=== PATIENT | male | born 1945 | race Caucasian/White ===

== ENCOUNTER → 2016-09-13 | Outpatient (CLI) | payer MEDICARE ==
[~2016-09-13] MED LIST: ALFU10TA6 PO; AMIO400T5 PO; ASCO-262 PO; ASPI-84 PO; ASPI325T32 PO; CA C1TAB79 PO; CHOL100011 PO; DOXA2TAB2 PO; ENXP80I.8 SQ; FINA5TAB PO; FOLI-88 PO; GABA-488 PO; HYDR-1231 PO; HYDR-3730 PO; LORA0.5T PO; LORA1TAB PO; METO-272 PO; OXYC-12 PO; PANT40TA3 PO; PNT40TEC PO; SIMV40TA4 PO; TRAM50TA2 PO; WRF5T PO; ZOLP10TA5 PO
--- OUTSIDE RECORDS SUMMARY | 2016-09-13 12:38 | XMS REPORT | Continuity of Care Document ---
Author Author [facility] Organization [facility] Address Unknown Phone Unavailable Care Team Providers Care Tax Commissioner Name Role Phone Self, Referral PCP Unavailable Source Comments Some departments are not documenting in the electronic medical record. If you do not see the information that you expected, contact Release of Information in the Health Information Management department at [phone] for further assistance in locating additional records.[facility] Active Allergies and Adverse Reactions No [...] veins. Successful cavotricuspid isthmus ablation. 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 Followed by Dr. Martinez Paroxysmal atrial flutter (HCC) 06/04/2012 Overview: 05/16/2012 - ANTONIO: No clot or thrombus were seen within the LA or MANA. Normal LV size and function. Mild mitral regurgitation. ([facility]ia [facility]) 05/16/2012 - DCCV: Successful atrial lead cardioversion in atrial flutter cardioversion and maintaining SR post cardioversion. ([facility]ia [facility]) HTN (hypertension) 06/04/2012 HLD (hyperlipidemia) 06/04/2012 Subdural hematoma (HCC) 06/04/2012 Overview: 1982 secondary to head trauma. Syncope 06/04/2012 Overview: 03/26/2008 - Tilt Table Test: Negative Tilt table for syncope. The patient had two episode of sudden drop in HR to the mid 20's and 30's upon performing Valsalva maneuver. ([facility]ia [facility]). 06/02/2012 - Stress Test: Excellent exercise tolerance a total of 10 minutes 15 seconds on standard Eduardo protocol, achieving 90% of maximum expected heart rate. No ischemia or infarction on SPECT images. Normal LV size with good contractility. EF ~ 62%. ([facility]). Chest pain 06/04/2012 Overview: 03/24/2008 - ECHO: [...] very dizzy in the supine position. ([facility]). 03/25/2008 - Stress Test: Excellent exercise tolerance [...] with good contractility. EF ~ 62%. ([facility]). Resolved Problems Problem Noted Date Resolved Date A-fib ([facility]) 12/19/2012 01/16/2013 Social History Tobacco [...]
--- NOTE | 2016-09-14 12:58 | ECHOCARDIOGRAPHY REPORT ---
PROCEDURE PHYSICIAN: KASH KEYES DATE OF PROCEDURE: 09/13/2016 TWO DIMENSIONAL ECHOCARDIOGRAM REPORT PRIMARY PHYSICIAN: OTHER PHYSICIAN: REFERRING PHYSICIAN: Dr. Alfredo ORDERING PHYSICIAN: INDICATION FOR THE PROCEDURE: Chest pain, atrial fibrillation MEASUREMENTS DERIVED VALUES LV DIAMETER (LAX) NORMALS NORMALS Diastolic 4.6 (3.6-5.2) Eject. Fract. 60% (60%+/-6%) Systolic (2.3-3.9) Diastolic Vol. % Shortening (0.22-0.42) Systolic Vol. Aortic Root IVS THICKNESS Diastolic 1.3 (0.6-1.1) LVPW THICKNESS Diastolic 1.3 (0.6-1.1) LA DIAMETER Systolic 4.1 (2.1-3.7) FINDINGS: 1. Technical quality is good. 2. The left ventricle is normal in size with moderate left ventricular hypertrophy noted diffusely. Systolic function appeared to be normal. Estimated ejection fraction 60%. Diastolic dysfunction is suggested by Doppler. 3. The left atrium is normal in size. No clot or thrombus were seen within the left atrium. 4. The right atrium and right ventricle are normal in size. No clot or thrombus were seen within the right side. 5. Mitral valve is normal in morphology with mild mitral regurgitation noted by color Doppler flow. No mitral valve prolapse. No mitral valve stenosis. 6. Aortic valve is trileaflet with normal opening and closing pattern. No significant aortic stenosis or regurgitation was seen. 7. Tricuspid valve is normal in morphology with mild tricuspid regurgitation noted by color Doppler flow. Doppler across tricuspid valve estimated pulmonary artery pressure of 31+ right atrial pressure. 8. Pulmonic valve is functioning normally. 9. No pericardial effusion. CONCLUSION: 1. Mild to moderate left ventricular hypertrophy noted diffusely. Systolic function is normal. Estimated ejection fraction 60%. Diastolic dysfunction is suggested by Doppler. 2. Mild mitral regurgitation. Mild tricuspid regurgitation. 3. Estimated pulmonary artery pressure of 40 mmHg. Job ID: [id number] Dictated Date: 09/14/2016 08:27:46 Dishwashing Machine Repairer Date: 09/14/2016 12:54:03 / rohith
== END ==
LOC: CARD 12:35
PROVIDERS: ATTEND Internal Medicine Cardiovascular Disease
DX: I48.91 Unspecified atrial fibrillation (principal); I10 Essential (primary) hypertension; E78.5 Hyperlipidemia, unspecified; E78.2 Mixed hyperlipidemia; R07.9 Chest pain, unspecified
CPT/HCPCS: 93306

== ENCOUNTER → 2016-10-11 | Outpatient (RCR) | payer MEDICARE ==
--- OUTSIDE RECORDS SUMMARY | 2016-07-13 14:26 | XMS REPORT | Continuity of Care Document ---
Author Author [facility] Organization [facility] Address Unknown Phone Unavailable Care Team Providers Care Regional Forester Name Role Phone Self, Referral PCP Unavailable Source Comments Some departments are not documenting in the electronic medical record. If you do not see the information that you expected, contact Release of Information in the Health Information Management department at [phone] for further assistance in locating additional records.[facility] Active Allergies and Adverse Reactions No Known Allergies Current Medications Prescription Sig. Disp. Refills Start End Date Status Date simvastatin (ZOCOR) 40 mg Take 40 mg by mouth at Active tablet bedtime daily. finasteride (PROSCAR) 5 Take 5 mg by mouth daily. Active mg tablet alfuzosin(+) (UROXATRAL) Take 10 mg by mouth daily Active 10 mg tablet after breakfast. zolpidem (AMBIEN) 10 mg Take 10 mg by mouth at Active tablet bedtime daily. cholecalciferol (Vitamin Take 1,000 Units by mouth Active D3) (VITAMIN D-3) 1,000 daily. units tablet ASCORBATE CALCIUM Take 500 mg by mouth Active (VITAMIN C PO) daily. pantoprazole DR Take 40 mg by mouth as Active (PROTONIX) 40 mg tablet Needed. LORazepam (ATIVAN) 1 mg Take 1 mg by mouth as Active tablet Needed. aspirin EC 325 mg tablet Take 325 mg by mouth Active daily. Active Problems Problem Noted Date AF (atrial fibrillation) (HCC) 12/02/2012 Overview: 12/19/2012 - LAAA / AFL RFA with Dr. Savage: Atrial fibrillation status post pulmonary vein antral isolation. Successful ablation of LA to isolate pulmonary veins. Successful cavotricuspid isthmus ablation. 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 Followed by Dr. Martinez Paroxysmal atrial flutter (HCC) 06/04/2012 Overview: 05/16/2012 - ANTONIO: No clot or thrombus were seen within the LA or MANA. Normal LV size and function. Mild mitral regurgitation. ([facility]ia [facility]) 05/16/2012 - DCCV: Successful atrial lead cardioversion in atrial flutter cardioversion and maintaining SR post cardioversion. ([facility]ia [facility]) HTN (hypertension) 06/04/2012 HLD (hyperlipidemia) 06/04/2012 Subdural hematoma (HCC) 06/04/2012 Overview: 1982 secondary to head trauma. Syncope 06/04/2012 Overview: 03/26/2008 - Tilt Table Test: Negative Tilt table for syncope. The patient had two episode of sudden drop in HR to the mid 20's and 30's upon performing Valsalva maneuver. (Via [facility]). 06/02/2012 - Stress Test: Excellent exercise tolerance a total of 10 minutes 15 seconds on standard Eduardo protocol, achieving 90% of maximum expected heart rate. No ischemia or infarction on SPECT images. Normal LV size with good contractility. EF ~ 62%. ([facility]ia [facility]). Chest pain 06/04/2012 Overview: 03/24/2008 - ECHO: Biventricular systolic function is normal with an EF ~ 60%. Doppler interrogation of LV inflow suggests underlying mild diastolic dysfunction with an E:A ration of 1.1. Cardiac chamber dimensions are at the upper limits of normal in size and symmetrical. No significant valvular abnormalities are noted. Trace mitral, tricuspid and pulmonic insufficiency are noted. Peak PA pressure is WNL estimated at 25mmHg. *When pt took a deep breath in for subcostal viewing his HR dropped from the 80's to the 30's with the pt feeling very dizzy in the supine position. ([facility]ia [facility]). 03/25/2008 - Stress Test: Excellent exercise tolerance for a total of 10 minutes achieving 99% of maximum expected heart rate. Baseline mild SB with appropriate HR response to exercise. Nondiagnostic EKG changes with exercise, returned to baseline during recovery. No ischemia or infarction on SPECT images. Normal LV size with good systolic function. No segmental wall motion abnormality. EF ~ 52%. 06/02/2012 - Stress Test: Excellent exercise tolerance, a total of 10 minutes 15 seconds on standard Eduardo protocol. Negative exercise stress test by EKG criteria. No ischemia or infarction on SPECT images. Normal LV size with good contractility. EF ~ 62%. ([facility]). Resolved Problems Problem Noted Date Resolved Date A-fib ([facility]) 12/19/2012 01/16/2013 Social History Tobacco Use Types Packs/Day Years Used Date Former Smoker Smokeless Tobacco: Current User Alcohol Use Drinks/Week oz/Week Comments No Last Filed Vital Signs Vital Sign Reading Time Taken Blood Pressure 110/76 05/29/2013 1:26 PM CDT Pulse 64 05/29/2013 1:24 PM CDT Temperature 36.7 C (98.1 F) 12/20/2012 3:00 AM CDT Respiratory Rate - - Height 1.88 m (6' 2") 05/29/2013 1:24 PM CDT Weight 93.033 kg (205 lb 1.6 oz) 05/29/2013 1:24 PM CDT Body Mass Index 26.32 05/29/2013 1:24 PM CDT Oxygen Saturation 99% 12/20/2012 3:00 AM CDT Plan of Care Health Maintenance Due Date Last Done Comments Physical (Comprehensive) 1952 Exam Pertussis Vaccine 1958 Tetanus Vaccine 1964 Colorectal Cancer 1997 Screening Shingles Vaccine 2007 Prevnar/Pneumovax (#1) 2012 Influenza Vaccine 04/12/2016 Results from Last 3 Months Not on file
== END | disposition home or self-care (01) ==
PROVIDERS: ATTEND Nurse Practitioner Family
DX: Z47.1 Aftercare following joint replacement surgery (principal); Z96.641 Presence of right artificial hip joint

== ENCOUNTER 2016-10-18 11:16 | Outpatient (RCR) | payer MEDICARE ==
[~2016-10-18 11:16] MED LIST changes: -HYDR-3730 PO; -PANT40TA3 PO
--- OUTSIDE RECORDS SUMMARY | 2016-10-18 11:25 | XMS REPORT | Continuity of Care Document ---
Author Author [facility] Organization [facility] Address Unknown Phone Unavailable Care Team Providers Care Manager Inventory Control Name Role Phone Self, Referral PCP Unavailable Source Comments Some departments are not documenting in the electronic medical record. If you do not see the information that you expected, contact Release of Information in the Health Information Management department at [phone] for further assistance in locating additional records.[facility] Active Allergies and Adverse Reactions No Known [...] veins. Successful cavotricuspid isthmus ablation. 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 Followed by Dr. Martinez Paroxysmal atrial flutter (HCC) 06/04/2012 Overview: 05/16/2012 - ANTNOIO: No clot or thrombus were seen within [...] and 30's upon performing Valsalva maneuver. (Via [facility]). 06/02/2012 - Stress Test: Excellent exercise tolerance a total of 10 minutes 15 seconds on standard Eduardo protocol, achieving 90% of maximum expected heart rate. No ischemia or infarction on SPECT images. Normal LV size with good contractility. EF ~ 62%. ([facility]). Chest pain 06/04/2012 Overview: 03/24/2008 - [...] very dizzy in the supine position. ([facility]). 03/25/2008 - Stress Test: Excellent exercise [...] with good contractility. EF ~ 62%. ([facility]ia [facility]). Resolved Problems Problem Noted Date Resolved Date A-fib ([facility]) 12/19/2012 01/16/2013 Social History Tobacco Use Types [...]
== END 2016-10-18 13:42 | disposition home or self-care (01) ==
PROVIDERS: ATTEND Nurse Practitioner Family
DX: Z47.1 Aftercare following joint replacement surgery (principal); Z96.641 Presence of right artificial hip joint

== ENCOUNTER 2016-11-28 09:50 | Outpatient (CLI) | payer MEDICARE ==
[~2016-11-28] VITALS: Ht 188 cm; Wt 91.6 kg
[2016-11-28 10:01] VITALS: BP 117/71
[2016-11-28] MEDS ORDERED: PANT40TA3 PO (10:11)
[2016-11-28 10:37] LABS: BASOPHILS % (AUTO) 1 % (0-10); EOSINOPHILS # (AUTO) 0.2 10^3/uL (0.0-0.3); EOSINOPHILS % (AUTO) 5 % (0-10); LYMPHOCYTES # (AUTO) 1.2 X 10^3 (1.0-4.0); LYMPHOCYTES % (AUTO) 26 % (12-44); MEAN CORPUSCULAR HEMOGLOBIN 28 PG (25-34); MEAN CORPUSCULAR HGB CONC 33 G/DL (32-36); MEAN CORPUSCULAR VOLUME 87 FL (80-99); MEAN PLATELET VOLUME 10.6 FL (7.4-10.4); MONOCYTES # (AUTO) 0.3 X 10^3 (0.0-1.0); MONOCYTES % (AUTO) 7 % (0-12); NEUTROPHILS % (AUTO) 62 % (42-75); PLATELET COUNT 193 10^3/uL (130-400); WHITE BLOOD COUNT 4.8 10^3/uL (4.3-11.0)
[2016-11-28 10:55] LABS: ANION GAP 9 MMOL/L (5-14); BLOOD UREA NITROGEN 11 MG/DL (7-18); BUN/CREATININE RATIO 11; CALCIUM 9.2 MG/DL (8.5-10.1); CARBON DIOXIDE 23 MMOL/L (21-32); CHLORIDE 108 MMOL/L (98-107); CREATININE SERUM 1.02 MG/DL (0.60-1.30); GFR ESTIMATED > 60; GLUCOSE 95 MG/DL (70-105); POTASSIUM 4.2 MMOL/L (3.6-5.0); SODIUM 140 MMOL/L (135-145)
[2016-11-29] MEDS ORDERED: HYDR-3730 PO (12:15)
== END 2016-11-28 10:25 | disposition home or self-care (01) ==
LOC: PREOP 09:50
PROVIDERS: ATTEND Surgery Pediatric Surgery
DX: Z01.812 Encounter for preprocedural laboratory examination (principal); Z11.2 Encounter for screening for other bacterial diseases; K40.90 Unilateral inguinal hernia, without obstruction or gangrene, not specified as recurrent; L98.9 Disorder of the skin and subcutaneous tissue, unspecified; R10.13 Epigastric pain
CPT/HCPCS: 36415; 80048; 85025; 87081

== ENCOUNTER 2016-11-29 09:01 | Day surgery (SDC) | payer MEDICARE ==
[~2016-11-29] VITALS: Ht 188 cm; Wt 91.6 kg
[~2016-11-29 09:01] MED LIST changes: +PANT40TA3 PO
[2016-11-29 09:30] VITALS: BP 121/78
[2016-11-29] MEDS: LACTATED RINGERS 1,000 ML IV PRN ×3 (09:30→12:28)
[2016-11-29] MEDS ORDERED: NS (IVPB) 50 ML ONE (09:35)
[2016-11-29] MEDS ORDERED: ceFAZolin 1,000 MG (ANCEF) VIAL ONE (09:35)
[2016-11-29] MEDS ORDERED: BUP/EPI 0.25% 1:200,000 (MARCAINE) 30 ML VIAL ONE (09:38)
[2016-11-29] MEDS ORDERED: BUP/EPI 0.5% 1:200,000 (SENSORCAINE) 30 ML VIAL ONE (09:39)
[2016-11-29] MEDS ORDERED: fentaNYL INJECTION 100 MCG/2 ML AMP ONE ×2 (09:45→12:22)
[2016-11-29] MEDS ORDERED: ROCURONIUM 50 MG/5 ML (ZEMURON) VIAL IV ONE (09:45)
[2016-11-29] MEDS ORDERED: MIDAZOLAM 2 MG/2 ML (VERSED) VIAL ONE (09:45)
[2016-11-29] MEDS ORDERED: proPOfol 200 MG/20 ML (DIPRIVAN) VIAL IV ONE (09:45)
[2016-11-29] MEDS ORDERED: LACTATED RINGERS 1,000 ML IV ONE ×3 (09:45→11:49)
[2016-11-29] MEDS ORDERED: SEVOFLURANE (ULTANE) 15 ML INHAL SOLN ONE ×3 (09:45→11:54)
[2016-11-29] MEDS ORDERED: ONDANSETRON 4 MG/2 ML (SDV) Z0FRAN ONE ×2 (09:45→11:55)
[2016-11-29] MEDS ORDERED: LIDOCAINE PF 2% 10 ML (XYLOCAINE) AMP ONE (09:45)
--- NOTE | 2016-11-29 09:48 | Progress Note-Pre Operative ---
Pre-Operative Progress Note H&P Reviewed The H&P was reviewed, patient examined and no changes noted. Date H&P Reviewed: Nov 29, 2016 Time H&P Reviewed: 09:40 Pre-Operative Diagnosis: bilateral symptomatic reducible inguinal hernias, GERD , nose lesion TAMIKO LOZOYA MD Nov 29, 2016 9:48 am
[2016-11-29] MEDS ORDERED: FAMOTIDINE 20MG/2ML IV (PEPCID) ONE (09:57)
[2016-11-29] MEDS ORDERED: morphine INJ 10 MG/ML 1ML (SYR OR VIAL) IVP PRN (10:00)
[2016-11-29] MEDS ORDERED: ceFAZolin 1 GM/NS 50 ML IVPB IV ONE ×2 (10:00)
[2016-11-29] MEDS ORDERED: ACETAMINOPHEN 325 MG TABLET/CAPLET (TYLENOL) PO PRN (10:00)
[2016-11-29] MEDS ORDERED: HYDROcodone/APAP 5 MG/325 MG (LORTAB) TAB PO ONE (10:00)
[2016-11-29] MEDS ORDERED: ONDANSETRON 4 MG/2 ML (SDV) Z0FRAN IVP PRN ×2 (10:00→12:15)
[2016-11-29] MEDS ORDERED: NEOSTIGMINE (BLOXIVERZ ) 1 MG/1ML 10 ML VIAL ONE (11:49)
[2016-11-29] MEDS ORDERED: GLYCOPYRROLATE 0.2 MG/ML (ROBINUL) 2 ML VIAL ONE (11:49)
[2016-11-29] MEDS ORDERED: KETOROLAC 30 MG/ML VIAL ONE (11:51)
[2016-11-29] MEDS ORDERED: DEXAMETHASONE PF 10 MG/ML (DECADRON) VIAL ONE (11:54)
[2016-11-29] MEDS ORDERED: BUP/EPI 0.5% 1:200,000 (SENSORCAINE) 30 ML VIAL INJ ONE (12:00)
[2016-11-29] MEDS ORDERED: morphine INJ 10 MG/ML 1ML (SYR OR VIAL) ONE (12:08)
--- NOTE | 2016-11-29 12:12 | Progress Note-Post Operative ---
Post-Operative Progess Note Surgeon (s)/Gut Puller (s) Surgeon TAMIKO LOZOYA MD Gut Puller: aileen perez FARMER [employer]OPS Pre-Operative Diagnosis bilateral symptomatic reducible inguinal hernias, GERD, nose lesion Post-Operative Diagnosis bilateral symptomatic direct ing hernia, 1cm recurrent lesion superior bridge of nose, reflux eshophagitis(class B), small HH(1.5cm), moderate gastritis. Post-Op Procedure Note Date of Procedure: Nov 29, 2016 Name of Procedure Performed: laparoscopic bilateral inguinal hernia repair with mesh. EGD with bx. Excision recurrent skin lesion nose(1cm). Description of the Procedure: laparoscopic bilateral inguinal hernia repair with mesh. EGD with bx. Excision recurrent skin lesion nose(1cm). Findings of the Procedure . Anesthesia Type GET Estimated blood loss (mL): minimal Specimen(s) collected/removed nose lesion, GE jxn, antrum TAMIKO LOZOYA MD Nov 29, 2016 12:12 pm
[2016-11-29] MEDS ORDERED: HYDR-3730 PO (12:15)
--- NOTE | 2016-11-29 12:16 | Discharge Inst-Surgical ---
D/C Lap Instructions-DEVORA New, Converted, or Re-Newed RX: RX on Chart Follow Up Appt in 2 weeks Activity as tolerated No driving for 24 hours No driving while on pain medications Incentive Spirometry use every 2 hours while awake Regular Diet Symptoms to Report: Fever over 101 degree F, Nausea/Vomiting Infection Signs and Symptoms to report: Increased redness, Foul odor of wound, Increased drainage Bathing instructions: May shower Operative Area Clean/Dry; Keep incision clean/dry If any problems/questions: Contact your physician or go to Emergency Room TAMIKO LOZOYA MD Nov 29, 2016 12:16 pm
[2016-11-29] MEDS: morphine INJ 10 MG/ML 1ML (SYR OR VIAL) IVP PRN ×3 (12:19→12:27)
[2016-11-29] MEDS: fentaNYL INJECTION 100 MCG/2 ML AMP IVP PRN ×3 (12:28→12:38)
[2016-11-29 13:05] VITALS: BP 109/72
[2016-11-29 13:35] VITALS: BP 106/69
[2016-11-29 14:05] VITALS: BP 107/67
--- NOTE | 2016-11-29 15:20 | OPERATIVE REPORT ---
DATE OF SERVICE: 11/29/2016 ATTENDING PRIMARY CARE PHYSICIAN: Dr. Beto Alfredo. PREOPERATIVE DIAGNOSES: 1. Bilateral symptomatic inguinal hernias. 2. Recurrent symptomatic skin lesion of the superior bridge of nose. 3. Recurrent gastroesophageal reflux disease. POSTOPERATIVE DIAGNOSES: 1. Bilateral direct inguinal hernias. 2. Skin lesion of the bridge of the nose, approximately 1 cm in size. 3. Reflux esophagitis Class B. 4. Small hiatal hernia, approximately 1.5 cm in size. 5. Moderate severity gastritis. PROCEDURE: 1. Laparoscopic bilateral inguinal hernia repair with mesh. 2. Excision recurrent skin lesion of the nose, 1 cm in size. 3. Esophagogastroduodenoscopy with biopsy. SURGEON: TAMIKO LOZOYA MD TOOTH CUTTER PINION: ROSSANA HALEY APRN ANESTHESIA: General endotracheal. ESTIMATED BLOOD LOSS: Minimal. FINDINGS: 1. Bilateral direct inguinal hernias with nothing within the hernia sacs. 2. 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 3. Reflux esophagitis, Class B. 4. Small hiatal hernia, approximately 1.5 cm in size. 5. No ulcers, pus or any neoplasms. DISPOSITION: The patient tolerated the procedure well. The patient is a 71-year-old male who we have seen before in the past. We had initially seen him in 2009 for a symptomatic umbilical hernia which was repaired. We had seen him a year later for bilateral inguinal swelling. At the time, he was found to have bilateral inguinal hernias which were small and not symptomatic at the time. Over time, he reports the size of the lesions have grown larger in size and become symptomatic. Upon recent examination, he was found to have bilateral inguinal hernias which were reducible, however, tender to palpation. 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 The reoccurrence is approximately 1 cm in size. He also reports that he has had epigastric discomfort for the past several years which has worsened over time. He states that he was started on Protonix, however, has had some slight worsening of symptoms over time as well. The patient was brought to the operating room and laid supine on the table. After adequate IV pain and sedating medications and general endotracheal intubation, the abdomen was prepped and draped in standard surgical fashion. A 0.5% Marcaine with epinephrine was used to anesthetize the overlying skin in the infraumbilical rim and transverse skin incision made using a 15 blade. The abdominal wall was retracted anteriorly with a sharp towel clamp and a Veress needle inserted with a low pressure of 0 mmHg and the abdomen was insufflated with 15 mmHg pressure. The Veress needle was removed and a 10 mm trocar was placed followed by a 10 mm x 45 degree angle laparoscope visualizing the peritoneal cavity. A four quadrant abdominal x-ray was performed. Bilateral direct inguinal hernias were identified. There was nothing within the hernia sac. There were no abnormalities of the colon, small bowel or omentum. Under direct visualization, we then proceeded to place bilateral 5 mm ports under direct visualization after the skin and peritoneum were anesthetized using 0.5% Marcaine and a transverse skin incision made using a 15 blade. We first proceeded with repair of the left inguinal hernia. The peritoneal lining was opened using Sonicision. We first directed laterally toward the conjoint tendon and inguinal ligament. We the proceeded medially toward Piter's ligament. We then proceeded with inferior dissection encompassing the entire hernia sac. The cord and its contents identified and spared throughout the process. Good hemostasis was observed. A Bard 3D Max polypropylene mesh was placed through the 10 mm port and tacked to Piter's ligament medially and inguinal ligament and conjoint tendon laterally. The peritoneal lining was then placed over the entire mesh and a few tacks placed to hold it into place. We then directed our surgery to repair of the right inguinal hernia. In a similar manner, the peritoneal lining was opened using Sonicision. We first proceeded with lateral dissection to the conjoint tendon and inguinal ligament. We then proceeded medially toward Piter's ligament. We then proceeded with inferior dissection until the entire hernia sac was dissected out. The same type of mesh was placed and tacked to Pitre's ligament medially and inguinal ligament and conjoint tendon laterally. The omentum was then placed over the mesh and a few tacks placed to hold them in place with visualization of good hemostasis. The 10 mm port site fascia and peritoneum were then closed under direct visualization using Marquez-Sulma device and 0 Vicryl suture. The abdomen was desufflated and the remaining ports were removed. The skin incisions were closed using 4-0 Monocryl running subcuticular sutures. The wounds were then cleaned and covered with Dermabond. The patient tolerated this portion of the procedure well. We will instruct him to do no heavy lifting or exertion for the next 2 weeks and then increase activity as tolerated and to wear scrotal support at all times. Under the same general endotracheal anesthesia, we then proceeded with the excision of the nose lesion. The face was prepped and draped in standard surgical fashion. The lesion was approximately 1 cm in size, raised and hyperkeratotic. This was anesthetized using 0.5% Marcaine with epinephrine. The lesion was then fully excised in an elliptical shape transversely using a 15 blade. Good hemostasis was observed and skin edges were approximated using interrupted 4-0 Nylon sutures. The wound was then cleaned and left open to air. Under the same anesthesia, we then proceeded with the EGD portion of the procedure. The endoscope was placed in the mouth visualizing the pharynx and hypopharyngeal region. The endotracheal tube was visualized going through the vocal cords. The endoscope was then intubated into the esophageal opening an esophagus insufflated. Endoscope was then advanced to the first, second and third portions of the esophagus at the level of the GE junction and reflux esophagitis, Class B identified. There were no ulcers or strictures identified in this region. A biopsy was performed with forceps with the aid of visualization with good hemostasis. Then, the scope was then easily advanced to the stomach and retroflexed. There was a small hiatal hernia approximately 1.5 cm in size. There was a modest degree of gastritis. There were no formal ulcers or polyps or anything further identified. A biopsy was taken of the stomach antrum with the forceps under visualization with good hemostasis. The endoscope was then advanced through the first and second portions of the duodenum. These segments were normal with no ulcers or distal obstruction identified. The endoscope was then slowly withdrawn while taking a second look and suctioning or residual air with no additional findings. The patient tolerated the procedure well. For his reflux esophagitis, gastritis and hiatal hernia, we will recommend continued medical management with the necessary lifestyle and diet accommodation including small and more frequent meals, avoidance of eating at night, as well as head elevation while laying supine. He also needs to avoid caffeinated beverages, spicy, greasy and acidic foods. We will also have him continue with Protonix for now; however, if his symptoms worsen, we will try different PPI, acid reducers, as well as a trial of Scottie. Job ID: [id number] DocumentID: [id number] Dictated Date: 11/29/2016 12:30:21 Tool Planer Set Up Operator Date: 11/29/2016 15:20:03 Dictated By: TAMIKO LOZOYA MD [facility]
[2016-11-29] MEDS ORDERED: HYDROcodone/APAP 5 MG/325 MG (LORTAB) TAB ONE (15:29)
== END 2016-11-29 16:10 | disposition home or self-care (01) ==
LOC: SDC 09:01
PROVIDERS: ATTEND Surgery Pediatric Surgery
DX: K40.20 Bilateral inguinal hernia, without obstruction or gangrene, not specified as recurrent (principal); K21.0 Gastro-esophageal reflux disease with esophagitis; K44.9 Diaphragmatic hernia without obstruction or gangrene; K29.70 Gastritis, unspecified, without bleeding; C44.321 Squamous cell carcinoma of skin of nose
CPT/HCPCS: 88305; 94640; 94664

== ENCOUNTER 2017-03-10 11:31 | Emergency (ER) | payer MEDICARE ==
[~2017-03-10] VITALS: Ht 188 cm; Wt 87.1 kg
[~2017-03-10 11:31] MED LIST changes: +HYDR-3730 PO
[2017-03-10] MEDS ORDERED: NS IV 1000 ML 1,000 ML IV ONE (12:04)
[2017-03-10] MEDS ORDERED: KETOROLAC 30 MG/ML VIAL IVP STA (12:04)
[2017-03-10] MEDS ORDERED: NS IV 500 ML 500 ML IV ONE (12:04)
--- NOTE | 2017-03-10 12:04 | ED GI ---
General Chief Complaint: -Male Stated Complaint: DIARRHEA/"VIRUS LIKE SYMPTOMS" Nursing Triage Note: PT AMBULATED TO ROOM. PT STATES HE HAS BEEN HAVING SEVERE DIARRHEA SINCE SATURDAY. NO URINARY ISSUES, BUT ALSO COMPLAINS OF ABD CRAMPING. Sepsis Screen: No Definite Risk Source of Information: Patient Exam Limitations: No Limitations History of Present Illness Time Seen By Provider: 11:57 Initial Comments Patient has ER by private conveyance with his with chief complaint that for 5 days now he has experienced copious loose watery diarrhea without any blood or tarry character 6. He has had some body aches for the past day or so and having a hard time keeping up with his fluid intake. Skin no fevers nausea or rash. He says they were out of [place]. To go camping but did not drink from any unsafe water sources or aware of. He has been on prednisone taper for the past 3 months to try and treat the pain from his right hip procedure that was done in May 2016. He says his primary care doctor did not think that it was caused by the prednisone. He says he had a colonoscopy over 10 years ago and was not told he had diverticula. He has not been on any antibiotics recently. He is having 8-10 watery diarrhea a day. He took 4 Imodium in the past 2 days. It would help for a little bit but he says he today the Imodium is not helping. Allergies and Home Medications Allergies Coded Allergies: ether (Verified Allergy, Unknown, 03/24/08) Home Medications Alfuzosin Hcl 10 Mg Tab.sr.24h, 10 MG PO HS, (Reported) Ascorbate Calcium 500 Mg Tablet, 500 MG PO HS, (Reported) Aspirin 325 Mg Tablet.dr, 325 MG PO DAILY, (Reported) Ca Carbonate/Vitamin D3/Vit K 1 Each Tab.chew, 1 EACH PO HS, (Reported) Cholecalciferol 1,000 Unit Capsule, 1,000 UNIT PO HS, (Reported) Finasteride 5 Mg Tablet, 5 MG PO HS, (Reported) Folic Acid/Multivit-Min/Lutein 1 Each Tab.chew, 1 EACH PO HS, (Reported) Hydrocodone/Acetaminophen 1 Each Tablet, 1-2 EACH PO Q4H, #35 Prescribed by: TAMIKO LOZOYA on 11/29/16 1215 Lorazepam 1 Mg Tablet, 1 MG PO HS PRN for SLEEP, (Reported) Pantoprazole Sodium 40 Mg Tablet.dr, 40 MG PO DAILY, (Reported) Simvastatin 40 Mg Tablet, 40 MG PO HS, (Reported) Zolpidem Tartrate 10 Mg Tablet, 10 MG PO HS PRN, (Reported) Review of Systems Constitutional: No chills, No diaphoresis, No dizziness, No fever, No malaise Respiratory: Denies Cough, Denies Shortness of Air Cardiovascular: Denies Chest Pain, Denies Irregular Heart Rate, Denies Lightheadedness Gastrointestinal: See HPI, Denies Abdominal Pain, Denies Constipated, Diarrhea , Denies Nausea, Poor Appetite Genitourinary: Denies Burning, Denies Discharge Skin: No pruritus, No rash Psychiatric/Neurological: Denies Headache, Denies Numbness Past Xrkrvcj-Rcxmqo-Wqfbau Hx Patient Social History Alcohol Use: Denies Use Recreational Drug Use: No Type Used: Smokeless Tobacco 2nd Hand Smoke Exposure: No Recent Foreign Travel: No Contact w/Someone Who Travel: No Recent Infectious Disease Expo: No Recent Hopitalizations: No Immunizations Up To Date Tetanus Booster (TDap): Unknown Date of Pneumonia Vaccine: May 12, 2012 Seasonal Allergies Seasonal Allergies: Yes (MILD) Surgeries HX Surgeries: Yes (HEART ABLATION, SUBDURAL HEMATOMA, HERNIA, RIGHT HIP REPLACED) Surgeries: Appendectomy, Joint Replacement, Tonsillectomy Respiratory Hx Respiratory Disorders: Yes (PNEUMONIA 5 WEEKS AGO, STILL HAS PERSISTENT NON- PRODUCTIVE COUGH) Respiratory Disorders: Pneumonia, Sleep Apnea Cardiovascular Hx Cardiac Disorders: Yes (HX OF HEART ABLATION-2012) Neurological Hx Neurological Disorders: Yes (SUBDURAL HEMATOMA 1981) Reproductive System Hx Reproductive Disorders: No Sexually Transmitted Disease: No Genitourinary Hx Genitourinary Disorders: No Gastrointestinal Hx Gastrointestinal Disorders: Yes (EPIGASTRIC PAIN) Gastrointestinal Disorders: Gastroesophageal Reflux Musculoskeletal Hx Musculoskeletal Disorders: Yes (RIGHT HIP REPLACED-MAY 2016; RIGHT SHOULDER TORN ROTATOR CUFF) Endocrine Hx Endocrine Disorders: No HEENT HX ENT Disorders: Yes (CATARACT REMOVED) HEENT Disorders: Cataract Loss of Vision: Bilateral Hearing Impairment: Hard of Hearing, Bilateral Hearing Aide Cancer Hx Cancer: Yes Cancer: Skin Psychosocial Hx Psychiatric Problems: No Integumentary HX Skin/Integumentary Disorder: No Blood Transfusions Hx Blood Disorders: No Physical Exam Vital Signs VS - Last 72 Hours, by Label 03/10/17 11:38 Temp 99.3 Pulse 83 Resp 16 B/P (MAP) 142/84 Pulse Ox 93 O2 Delivery Room Air Capillary Refill : Less Than 3 Seconds General Appearance: WD/WN, no apparent distress HEENT: PERRL/EOMI, pharynx normal Neck: non-tender, full range of motion, normal inspection Respiratory: chest non-tender, lungs clear, normal breath sounds Cardiovascular: normal peripheral pulses, regular rate, rhythm, no edema Peripheral Pulses: 3+ Dorsalis Pedis (R), 3+ Left Dors-Pedis (L) Gastrointestinal: non tender, soft, abnormal bowel sounds (hyperactive) Extremities: non-tender, normal capillary refill Neurologic/Psychiatric: alert, oriented x 3 Skin: normal color, warm/dry Focused Exam Lactic Acid Level Laboratory Tests Test 03/10/17 12:30 Lactic Acid Level 1.45 MMOL/L (0.50-2.00) Progress/Results/Core Measures Results/Orders Lab Results Laboratory Tests Test 03/10/17 11:55 03/10/17 12:30 Range/Units White Blood Count 4.5 4.3-11.0 10^3/uL Red Blood Count 4.96 4.35-5.85 10^6/uL Hemoglobin 14.3 13.3-17.7 G/DL Hematocrit 43 40-54 % Mean Corpuscular Volume 87 80-99 FL Mean Corpuscular Hemoglobin 29 25-34 PG Mean Corpuscular Hemoglobin Concent 33 32-36 G/DL Red Cell Distribution Width 14.2 10.0-14.5 % Platelet Count 189 130-400 10^3/uL Mean Platelet Volume 10.1 7.4-10.4 FL Neutrophils (%) (Auto) 55 42-75 % Lymphocytes (%) (Auto) 24 12-44 % Monocytes (%) (Auto) 18 H 0-12 % Eosinophils (%) (Auto) 3 0-10 % Basophils (%) (Auto) 0 0-10 % Neutrophils # (Auto) 2.5 1.8-7.8 X 10^3 Lymphocytes # (Auto) 1.1 1.0-4.0 X 10^3 Monocytes # (Auto) 0.8 0.0-1.0 X 10^3 Eosinophils # (Auto) 0.1 0.0-0.3 10^3/uL Basophils # (Auto) 0.0 0.0-0.1 10^3/uL Sodium Level 136 135-145 MMOL/L Potassium Level 3.7 3.6-5.0 MMOL/L Chloride Level 105 98-107 MMOL/L Carbon Dioxide Level 21 21-32 MMOL/L Anion Gap 10 5-14 MMOL/L Blood Urea Nitrogen 13 7-18 MG/DL Creatinine 1.18 0.60-1.30 MG/DL Estimat Glomerular Filtration Rate > 60 BUN/Creatinine Ratio 11 Glucose Level 127 H 70-105 MG/DL Calcium Level 9.1 8.5-10.1 MG/DL Magnesium Level 1.8 1.8-2.4 MG/DL Total Bilirubin 0.8 0.1-1.0 MG/DL Aspartate Amino Transf (AST/SGOT) 11 5-34 U/L Alanine Aminotransferase (ALT/SGPT) 18 0-55 U/L Alkaline Phosphatase 59 40-136 U/L C-Reactive Protein High Sensitivity 3.73 H 0.00-0.50 MG/DL Total Protein 6.4 6.4-8.2 GM/DL Albumin 3.7 3.2-4.5 GM/DL Lactic Acid Level 1.45 0.50-2.00 MMOL/L Micro Results Microbiology 03/10/17 C. difficile GDH Antigen & Toxins - Final, Complete My Orders Orders - OSMAR LOAIZA Cbc With Automated Diff (03/10/17 12:04) Comprehensive Metabolic Panel (03/10/17 12:04) Hs C Reactive Protein (03/10/17 12:04) Lactic Acid Analyzer (03/10/17 12:04) Magnesium (03/10/17 12:04) Stool Culture (03/10/17 12:04) Fecal Wbc (03/10/17 12:04) Abdomen/Kub 1view (03/10/17 12:04) Ketorolac Injection (Toradol Injection) (03/10/17 12:04) Saline Lock/Iv-Start (03/10/17 12:04) Ns Iv 500 Ml (Sodium Chloride 0.9%) (03/10/17 12:04) Ns Iv 1000 Ml (Sodium Chloride 0.9%) (03/10/17 12:04) Loperamide Capsule (Imodium Capsule) (03/10/17 12:15) C Difficile Ag + Toxin A/B. (03/10/17 13:17) Parasite Scrn Stool Giard Cryp (03/10/17 12:11) Medications Given in ED Current Medications Medications Dose Ordered Sig/Jeannine Route Start Time Stop Time Status Last Admin Dose Admin Loperamide HCl 4 mg ONCE ONCE PO 03/10/17 12:15 03/10/17 12:16 DC 03/10/17 12:34 4 MG Sodium Chloride 500 ml @ 0 mls/hr Q0M ONCE IV 03/10/17 12:04 03/10/17 12:10 DC 03/10/17 12:32 500 MLS/HR Sodium Chloride 1,000 ml @ 0 mls/hr Q0M ONCE IV 03/10/17 12:04 03/10/17 12:10 DC 03/10/17 13:03 1,000 MLS/HR Vital Signs/I&O Vital Sign - Last 12Hours 03/10/17 11:38 Temp 99.3 Pulse 83 Resp 16 B/P (MAP) 142/84 Pulse Ox 93 O2 Delivery Room Air Blood Pressure Mean: 103 Progress Note : Time: 13:38 Progress Note Patient's lab is not that remarkable. We've given him some IV fluids and he is feeling better. We will teach him how to use loperamide and he has not had a bowel movement since getting loperamide here. We'll give him good return precautions and let him go home with the C. difficile tox is negative. Otherwise antibiotics are probably not indicated at this time as she is not septic nor does he require hospitalization for his inability to keep up with his fluids. Diagnostic Imaging Diagonstic Imaging: Xray Plain Films/CT/US/NM/MRI: abdomen (KUB) Comments NAME: REGINA PATEL [facility] REC#: [id number] PT STATUS: REG ER : 1945 PHYSICIAN: OSMAR LOAIZA MD ADMIT DATE: 03/10/17/ER Draft Date of Exam:03/10/17 ABDOMEN/KUB 1VIEW INDICATION: Diarrhea, abdominal pain COMPARISON: None. FINDINGS: 2 views of the abdomen demonstrate nondistended bowel gas pattern. There is no free air. No abnormal calcification. IMPRESSION: Negative KUB. Dictated on workstation # [id number] Dict: 03/10/17 1249 Trans: 03/10/17 1251 [facility] [id number] Interpreted by: ESTEBAN ZAIDI Electronically signed by: Reviewed: Reviewed by Me Departure Impression Impression: Primary Impression: Diarrhea in adult patient Disposition: 01 HOME, SELF-CARE Condition: Improved Departure-Patient Inst. Decision time for Depature: 13:39 Referrals: BAYLEE BRANTLEY MD (PCP/Family) Primary Care Physician Patient Instructions: Diarrhea and Traveler's Diarrhea, Adult (DC) Add. Discharge Instructions: The goal of diarrhea is to keep up with your fluids faster than you're losing them to your diarrhea. So you should drink copious amounts of fluids and eat a bland diet to include things like bananas, rice, applesauce and toast. If you' re having diarrhea for more than 48 hours and having a hard time keeping up with your fluid intake then you should take 2 tablets of loperamide by mouth. Every 4 hours if he had a loose stool take another tablet of loperamide until you're no longer having diarrhea. If your symptoms of diarrhea last for more than a couple days you should follow up with your primary care physician and have them follow-up on the stool cultures that were obtained today. Preliminary report should be available by tomorrow. If you're having new or worsening symptoms such as chest pain shortness of breath fevers he should return to the ER. All discharge instructions reviewed with patient and/or family. Voiced understanding. Copy Copies To 1: BAYLEE BRANTLEY MD, TITUS J Mar 10, 2017 12:04
[2017-03-10 12:15] LABS: BASOPHILS % (AUTO) 0 % (0-10); EOSINOPHILS # (AUTO) 0.1 10^3/uL (0.0-0.3); EOSINOPHILS % (AUTO) 3 % (0-10); LYMPHOCYTES # (AUTO) 1.1 X 10^3 (1.0-4.0); LYMPHOCYTES % (AUTO) 24 % (12-44); MEAN CORPUSCULAR HEMOGLOBIN 29 PG (25-34); MEAN CORPUSCULAR HGB CONC 33 G/DL (32-36); MEAN CORPUSCULAR VOLUME 87 FL (80-99); MEAN PLATELET VOLUME 10.1 FL (7.4-10.4); MONOCYTES # (AUTO) 0.8 X 10^3 (0.0-1.0); MONOCYTES % (AUTO) 18 % (0-12); NEUTROPHILS # (AUTO) 2.5 X 10^3 (1.8-7.8); NEUTROPHILS % (AUTO) 55 % (42-75); PLATELET COUNT 189 10^3/uL (130-400); RED BLOOD COUNT 4.96 10^6/uL (4.35-5.85); RED CELL DISTRIBUTION WIDTH 14.2 % (10.0-14.5); WHITE BLOOD COUNT 4.5 10^3/uL (4.3-11.0)
[2017-03-10] MEDS ORDERED: LOPERAMIDE 2 MG (IMODIUM) CAP PO ONE (12:15)
[2017-03-10 12:42] LABS: ALANINE AMINOTRANSFERASE 18 U/L (0-55); ALBUMIN 3.7 GM/DL (3.2-4.5); ANION GAP 10 MMOL/L (5-14); ASPARTATE AMINO TRANSFERASE 11 U/L (5-34); BILIRUBIN,TOTAL 0.8 MG/DL (0.1-1.0); BLOOD UREA NITROGEN 13 MG/DL (7-18); BUN/CREATININE RATIO 11; CALCIUM 9.1 MG/DL (8.5-10.1); CARBON DIOXIDE 21 MMOL/L (21-32); CHLORIDE 105 MMOL/L (98-107); CREATININE SERUM 1.18 MG/DL (0.60-1.30); GFR ESTIMATED > 60; GLUCOSE 127 MG/DL (70-105); MAGNESIUM 1.8 MG/DL (1.8-2.4); POTASSIUM 3.7 MMOL/L (3.6-5.0); SODIUM 136 MMOL/L (135-145); TOTAL PROTEIN 6.4 GM/DL (6.4-8.2); hs C REACTIVE PROTEIN 3.73 MG/DL (0.00-0.50)
--- NOTE | 2017-03-10 12:51 | Diagnostic Imaging Report ---
INDICATION: Diarrhea, abdominal pain COMPARISON: None. FINDINGS: 2 views of the abdomen demonstrate nondistended bowel gas pattern. There is no free air. No abnormal calcification. IMPRESSION: Negative KUB. Dictated by: Dictated on workstation # [id number]
[2017-03-10] MEDS ORDERED: ONDANSETRON 4 MG/2 ML (SDV) Z0FRAN IVP ONE (13:45)
[2017-03-10 14:18] VITALS: BP 116/79
== END 2017-03-10 14:18 | disposition home or self-care (01) ==
LOC: EDUNIT# 11:31 → ER 11:32
DX: R19.7 Diarrhea, unspecified (principal); K21.9 Gastro-esophageal reflux disease without esophagitis; F17.200 Nicotine dependence, unspecified, uncomplicated; Z96.642 Presence of left artificial hip joint; Z87.01 Personal history of pneumonia (recurrent); Z98.890 Other specified postprocedural states; Z90.89 Acquired absence of other organs; Z90.49 Acquired absence of other specified parts of digestive tract; Z79.82 Long term (current) use of aspirin
CPT/HCPCS: 36415; 74000; 80053; 83605; 83735; 85025; 86141; 87045; 87046; 87324; 87328; 87329; 87449; 89055; 96361; 96374

== ENCOUNTER 2018-03-16 09:03 | Emergency (ER) | payer MEDICARE, OTHER ==
[~2018-03-16] VITALS: Ht 188 cm; Wt 92.1 kg
[2018-03-16] MEDS ORDERED: KETOROLAC 30 MG/ML VIAL IVP ONE (09:15)
[2018-03-16] MEDS ORDERED: ONDANSETRON 4 MG/2 ML (SDV) Z0FRAN IVP ONE (09:15)
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
[2018-03-16] MEDS ORDERED: DOXY50CA2 (09:36)
[2018-03-16] MEDS ORDERED: NPD5OP (09:36)
--- NOTE | 2018-03-16 09:39 | Diagnostic Imaging Report ---
Indication: Right-sided periumbilical pain. Fever Supine views of the abdomen shows the bowel gas pattern to be within normal limits. No mass or calculus is seen. There is no bony abnormality. Impression: No acute abnormality is seen with no change from 03/10/2017. Dictated by: Dictated on workstation # [id number]
--- NOTE | 2018-03-16 09:45 | Diagnostic Imaging Report ---
PROCEDURE: CT urinary tract, rule out kidney stone. TECHNIQUE: Multiple contiguous axial images were obtained through the abdomen and pelvis without the use of intravenous contrast. INDICATION: Right-sided periumbilical pain. Fever. The liver, gallbladder and bile ducts are normal. The spleen, pancreas and adrenals are normal. There are several punctate nonobstructing stones in the left kidney. There is no hydronephrosis on the left. There is mild pelvic caliectasis present on the right. The right ureter is mildly dilated down into the mid pelvic level where there is a 3-4 mm calculus present. This is several centimeters proximal to the ureterovesical junction. The left ureter is normal. The bladder is normal. There is diverticulosis of the colon with no evidence of diverticulitis or other acute bowel abnormality. There is no free intraperitoneal air or fluid. There is no acute bony normality. IMPRESSION: There is a 3 x 4 mm calculus in the distal right ureter causing mild obstruction at this time. Dictated by: Dictated on workstation # [id number]
[2018-03-16] MEDS ORDERED: ONDA4TAB11 PO (10:23)
[2018-03-16] MEDS ORDERED: CEPH500T PO (10:23)
[2018-03-16] MEDS ORDERED: OXYC-471 PO (10:23)
[2018-03-16 10:45] LABS: BILIRUBIN,URINE NEGATIVE (NEGATIVE); CLARITY,URINE CLEAR; COLOR,URINE YELLOW; GLUCOSE, URINE (UA) NEGATIVE (NEGATIVE); KETONES,URINE 1+ (NEGATIVE); LEUKOCYTE ESTERASE ,URINE 1+ (NEGATIVE); NITRITE,URINE NEGATIVE (NEGATIVE); PH,URINE 5 (5-9); PROTEIN,URINE 1+ (NEGATIVE); UROBILINOGEN,URINE 1 MG/DL (NORMAL)
[2018-03-16 10:55] LABS: BACTERIA,URINE TRACE /HPF; GRANULAR CASTS,URINE 0-2 /LPF
[2018-03-16] MEDS ORDERED: OXYC-202 PO (11:02)
[2018-03-16 11:13] VITALS: BP 128/90
--- OUTSIDE RECORDS SUMMARY | 2018-03-17 09:13 | XMS REPORT | Clinical Summary ---
Author Author [facility] Organization [facility] Address Unknown Phone Unavailable Care Team Providers [employer] Parts Counter Sales Person Name Role Phone Self, Referral PCP Unavailable Source Comments Some departments are not documenting in the electronic medical record. If you do not see the information that you expected, contact Release of Information in the Health Information Management department at [phone] for further assistance in locating additional records.[facility] Allergies No Known Allergies Current Medications Prescription Sig. [...] veins. Successful cavotricuspid isthmus ablation. Hyperthyroidism 09/02/2012 senior care current use of anticoagulant 09/02/2012 Overview: Warfarin. Followed by Dr. Martinez Paroxysmal atrial flutter (HCC) 06/04/2012 Overview: 05/16/2012 - ANTONIO: No clot or thrombus were seen within the LA or MANA. Normal LV size and function. Mild mitral regurgitation. ([facility]) 05/16/2012 - DCCV: Successful atrial lead cardioversion in atrial flutter cardioversion and maintaining SR post cardioversion. 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 Syncope 06/04/2012 Overview: 03/26/2008 - Tilt Table Test: Negative Tilt table for syncope. The patient had two episode of sudden drop in HR to the mid 20's and 30's upon performing Valsalva maneuver. ([facility]). 06/02/2012 - Stress Test: Excellent exercise tolerance a total of 10 minutes 15 seconds on standard Eduardo protocol, achieving 90% of maximum expected heart rate. No ischemia or infarction on SPECT images. Normal LV size with good contractility. EF ~ 62%. ([facility]). Chest pain 06/04/2012 Overview: 03/24/2008 - ECHO: [...] very dizzy in the supine position. ([facility]). 03/25/2008 - Stress Test: Excellent exercise tolerance [...] size with good contractility. EF ~ 62%. ([facility]). Resolved Problems Problem Noted Date Resolved Date A-fib (HCC) 12/19/2012 01/16/2013 Social History Tobacco Use Types Packs/Day Years Used Date Former Smoker Smokeless Tobacco: Current User Alcohol Use Drinks/Week oz/Week Comments No Sex Assigned at Date Recorded Not on file Last Filed Vital Signs Vital Sign Reading Time Taken Blood Pressure 110/76 05/29/2013 1:26 PM CDT Pulse 64 05/29/2013 1:24 PM CDT Temperature 36.7 C (98.1 F) 12/20/2012 3:00 AM CDT Respiratory Rate - - Oxygen Saturation 99% 12/20/2012 3:00 AM CDT Inhaled Oxygen - - Concentration Weight 93 kg (205 lb 1.6 oz) 05/29/2013 1:24 PM CDT Height 188 cm (6' 2") 05/29/2013 1:24 PM CDT Body Mass Index 26.33 05/29/2013 1:24 PM CDT Plan of Treatment Health Maintenance Due Date Last Done Comments HEPATITIS C SCREENING 1947 PHYSICAL (COMPREHENSIVE) 1954 EXAM PERTUSSIS VACCINE 1958 TETANUS VACCINE 1964 COLORECTAL CANCER 1997 SCREENING SHINGLES RECOMBINANT 1997 VACCINE (1 of 2) ABDOMINAL AORTIC ANEURYSM 2012 SCREENING PNEUMONIA (PCV13/PPSV23) 2012 VACCINES (1 of 2 - PCV13) INFLUENZA VACCINE 05/12/2018 Results Not on filefrom Last 3 Months
--- OUTSIDE RECORDS SUMMARY | 2018-03-17 09:14 | XMS REPORT | Continuity of Care Document ---
Author Author [facility] Organization [facility] Address Unknown Phone Unavailable Allergies Active Description Code Type Severity Reaction Onset Reported/Identified Relationship to Patient Clinical Status Yes ether [id number] Drug Allergy Unknown N/A 03/24/2008 Medications There is no data. 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 12/19/2015 ANNE MARIE TORRES MD Ot D22.39 MELANOCYTIC NEVI OF OTHER PARTS OF FACE 12/19/2015 ANNE MARIE TORRES MD Ot E03.2 HYPOTHYROIDISM DUE TO MEDS AND OTH EXOGE 12/19/2015 ANNE MARIE TORRES MD Ot E78.5 HYPERLIPIDEMIA, UNSPECIFIED 12/19/2015 ANNE MARIE TORRES MD Ot G47.33 OBSTRUCTIVE SLEEP APNEA (ADULT) (PEDIATR 12/19/2015 ANNE MARIE TORRES MD Ot I48.91 UNSPECIFIED ATRIAL FIBRILLATION 12/19/2015 ANNE MARIE TORRES MD Ot L57.0 ACTINIC KERATOSIS 12/19/2015 ANNE MARIE TORRES MD Ot L82.1 OTHER SEBORRHEIC KERATOSIS 12/19/2015 ANNE MARIE TORRES MD Ot Z11.2 ENCOUNTER FOR SCREENING FOR OTHER BACTER 12/21/2015 ANNE MARIE TORRES MD Ot 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 12/21/2015 ANNE MARIE TORRES MD Ot D22.39 MELANOCYTIC NEVI OF OTHER PARTS OF FACE 12/21/2015 ANNE MARIE TORRES MD Ot E03.2 HYPOTHYROIDISM DUE TO MEDS AND OTH EXOGE 12/21/2015 ANNE MARIE TORRES MD Ot E78.5 HYPERLIPIDEMIA, UNSPECIFIED 12/21/2015 ANNE MARIE TORRES MD Ot G47.33 OBSTRUCTIVE SLEEP APNEA (ADULT) (PEDIATR 12/21/2015 ANNE MARIE TORRES MD Ot I48.91 UNSPECIFIED ATRIAL FIBRILLATION 12/21/2015 ANNE MARIE TORRES MD Ot L57.0 ACTINIC KERATOSIS 12/21/2015 ANNE MARIE TORRES MD Ot L82.1 OTHER SEBORRHEIC KERATOSIS 12/21/2015 ANNE MARIE TORRES MD Ot Z11.2 ENCOUNTER FOR SCREENING FOR OTHER BACTER 05/21/2016 ANNE MARIE TORRES MD Ot 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 05/21/2016 ANNE MARIE TORRES MD Ot D22.39 MELANOCYTIC NEVI OF OTHER PARTS OF FACE 05/21/2016 ANNE MARIE TORRES MD Ot E03.2 HYPOTHYROIDISM DUE TO MEDS AND OTH EXOGE 05/21/2016 ANNE MARIE TORRES MD Ot E78.5 HYPERLIPIDEMIA, UNSPECIFIED 05/21/2016 ANNE MARIE TORRES MD Ot G47.33 OBSTRUCTIVE SLEEP APNEA (ADULT) (PEDIATR 05/21/2016 ANNE MARIE TORRES MD Ot I48.91 UNSPECIFIED ATRIAL FIBRILLATION 05/21/2016 ANNE MARIE TORRES MD Ot L57.0 ACTINIC KERATOSIS 05/21/2016 ANNE MARIE TORRES MD Ot L82.1 OTHER SEBORRHEIC KERATOSIS 05/21/2016 ANNE MARIE TORRES MD Ot Z11.2 ENCOUNTER FOR SCREENING FOR OTHER BACTER 09/14/2016 KASH KEYES MD Ot E78.2 MIXED HYPERLIPIDEMIA 09/14/2016 KASH KEYES MD Ot E78.5 HYPERLIPIDEMIA, UNSPECIFIED 09/14/2016 KASH KEYES MD Ot I10 ESSENTIAL (PRIMARY) HYPERTENSION 09/14/2016 KASH KEYES MD Ot I48.91 UNSPECIFIED ATRIAL FIBRILLATION 09/14/2016 KASH KEYES MD Ot R07.9 CHEST PAIN, UNSPECIFIED 09/19/2016 KASH KEYES MD Ot E78.2 MIXED HYPERLIPIDEMIA 09/19/2016 KASH KEYES MD Ot E78.5 HYPERLIPIDEMIA, UNSPECIFIED 09/19/2016 KASH KEYES MD Ot I10 ESSENTIAL (PRIMARY) HYPERTENSION 09/19/2016 KASH KEYES MD Ot I48.91 UNSPECIFIED ATRIAL FIBRILLATION 09/19/2016 KASH KEYES MD Ot R07.9 CHEST PAIN, UNSPECIFIED 09/27/2016 BENJIE, EDGAR E MARINE OIL TERMINAL SUPERINTENDENT Ot Z47.1 AFTERCARE FOLLOWING JOINT REPLACEMENT BOYD 09/27/2016 BENJIE, EDGAR E MARINE OIL TERMINAL SUPERINTENDENT Ot Z96.641 PRESENCE OF RIGHT ARTIFICIAL HIP JOINT 10/04/2016 BENJIE, EDGAR E MARINE OIL TERMINAL SUPERINTENDENT Ot Z47.1 AFTERCARE FOLLOWING JOINT REPLACEMENT BOYD 10/04/2016 BENJIE, EDGAR E MARINE OIL TERMINAL SUPERINTENDENT Ot Z96.641 PRESENCE OF RIGHT ARTIFICIAL HIP JOINT 10/04/2016 BENJIE, EDGAR E MARINE OIL TERMINAL SUPERINTENDENT Ot Z47.1 AFTERCARE FOLLOWING JOINT REPLACEMENT BOYD 10/04/2016 BENJIE, EDGAR E MARINE OIL TERMINAL SUPERINTENDENT Ot Z96.641 PRESENCE OF RIGHT ARTIFICIAL HIP JOINT 10/08/2016 KASH KEYES MD Ot E78.2 MIXED HYPERLIPIDEMIA 10/08/2016 KASH KEYES MD Ot E78.5 HYPERLIPIDEMIA, UNSPECIFIED 10/08/2016 KASH KEYES MD Ot I10 ESSENTIAL (PRIMARY) HYPERTENSION 10/08/2016 KASH KEYES MD Ot I48.91 UNSPECIFIED ATRIAL FIBRILLATION 10/08/2016 KASH KEYES MD Ot R07.9 CHEST PAIN, UNSPECIFIED 10/11/2016 BENJIE, EDGAR E MARINE OIL TERMINAL SUPERINTENDENT Ot Z47.1 AFTERCARE FOLLOWING JOINT REPLACEMENT BOYD 10/11/2016 BENJIE, EDGAR E MARINE OIL TERMINAL SUPERINTENDENT Ot Z96.641 PRESENCE OF RIGHT ARTIFICIAL HIP JOINT 10/11/2016 KASH KEYES MD Ot E78.2 MIXED HYPERLIPIDEMIA 10/11/2016 KASH KEYES MD Ot E78.5 HYPERLIPIDEMIA, UNSPECIFIED 10/11/2016 KASH KEYES MD Ot I10 ESSENTIAL (PRIMARY) HYPERTENSION 10/11/2016 KASH KEYES MD Ot I48.91 UNSPECIFIED ATRIAL FIBRILLATION 10/11/2016 KASH KEYES MD Ot R07.9 CHEST PAIN, UNSPECIFIED 10/18/2016 BENJIE, EDGAR E MARINE OIL TERMINAL SUPERINTENDENT Ot Z47.1 AFTERCARE FOLLOWING JOINT REPLACEMENT BOYD 10/18/2016 BENJIE, EDGAR E MARINE OIL TERMINAL SUPERINTENDENT Ot Z96.641 PRESENCE OF RIGHT ARTIFICIAL HIP JOINT 10/18/2016 BENJIE, EDGAR E MARINE OIL TERMINAL SUPERINTENDENT Ot Z47.1 AFTERCARE FOLLOWING JOINT REPLACEMENT BOYD 10/18/2016 BENJIE, EDGAR E MARINE OIL TERMINAL SUPERINTENDENT Ot Z96.641 PRESENCE OF RIGHT ARTIFICIAL HIP JOINT 11/28/2016 TAMIKO LOZOYA MD, Ot K40.90 UNIL INGUINAL HERNIA, W/O OBST OR GANGR, 11/28/2016 TAMIKO LOZOYA MD Ot L98.9 DISORDER OF THE SKIN AND SUBCUTANEOUS TI 11/28/2016 TAMIKO LOZOYA MD Ot R10.13 EPIGASTRIC PAIN 11/28/2016 TAMIKO LOZOYA MD, Ot Z01.812 ENCOUNTER FOR PREPROCEDURAL LABORATORY E 11/28/2016 TAMIKO LOZOYA MD Ot Z11.2 ENCOUNTER FOR SCREENING FOR OTHER BACTER 11/29/2016 TAMIKO LOZOYA MD Ot K40.90 UNIL INGUINAL HERNIA, W/O OBST OR GANGR, 11/29/2016 TAMIKO LOZOYA MD, Ot L98.9 DISORDER OF THE SKIN AND SUBCUTANEOUS TI 11/29/2016 TAMIKO LOZOYA MD Ot R10.13 EPIGASTRIC PAIN 11/29/2016 TAMIKO LOZOYA MD Ot Z01.812 ENCOUNTER FOR PREPROCEDURAL LABORATORY E 11/29/2016 TAMIKO LOZOYA MD Ot Z11.2 ENCOUNTER FOR SCREENING FOR OTHER BACTER 11/29/2016 TAMIKO LOZOYA MD, Ot 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 11/29/2016 TAMIKO LOZOYA MD Ot K21.0 GASTRO-ESOPHAGEAL REFLUX DISEASE WITH ES 11/29/2016 TAMIKO LOZOYA MD Ot K29.70 GASTRITIS, UNSPECIFIED, WITHOUT BLEEDING 11/29/2016 TAMIKO LOZOYA MD Ot K40.20 BI INGUINAL HERNIA, W/O OBST OR GANGRENE 11/29/2016 TAMIKO LOZOYA MD, Ot K44.9 DIAPHRAGMATIC HERNIA WITHOUT OBSTRUCTION 12/11/2016 TAMIKO LOZOYA MD, Ot 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 12/11/2016 TAMIKO LOZOYA MD Ot K21.0 GASTRO-ESOPHAGEAL REFLUX DISEASE WITH ES 12/11/2016 TAMIKO LOZOYA MD Ot K29.70 GASTRITIS, UNSPECIFIED, WITHOUT BLEEDING 12/11/2016 TAMIKO LOZOYA MD Ot K40.20 BI INGUINAL HERNIA, W/O OBST OR GANGRENE 12/11/2016 TAMIKO LOZOYA MD Ot K44.9 DIAPHRAGMATIC HERNIA WITHOUT OBSTRUCTION 03/10/2017 Ot F17.200 NICOTINE DEPENDENCE, UNSPECIFIED, UNCOMP 03/10/2017 Ot K21.9 GASTRO- ESOPHAGEAL REFLUX DISEASE WITHOUT 03/10/2017 Ot R19.7 DIARRHEA, UNSPECIFIED 03/10/2017 Ot Z79.82 ALF ( CURRENT) USE OF ASPIRIN 03/10/2017 Ot Z87.01 PERSONAL HISTORY OF PNEUMONIA (RECURRENT 03/10/2017 Ot Z90.49 ACQUIRED ABSENCE OF OTHER SPECIFIED PART 03/10/2017 Ot Z90.89 ACQUIRED ABSENCE OF OTHER ORGANS 03/10/2017 Ot Z96.642 PRESENCE OF LEFT ARTIFICIAL HIP JOINT 03/10/2017 Ot Z98.890 OTHER SPECIFIED POSTPROCEDURAL STATES Procedures There is no data. Results Test Result Range Complete blood count (CBC) with automated white blood cell (WBC) differential - 11/28/16 10:20 Blood leukocytes automated count (number/volume) 4.8 10*3/uL 4.3-11.0 Blood erythrocytes automated count (number/volume) 5.10 10*6/uL 4.35-5.85 Venous blood hemoglobin measurement (mass/volume) 14.5 g/dL 13.3-17.7 Blood hematocrit (volume fraction) 44 % 40-54 Automated erythrocyte mean corpuscular volume 87 [foz_us] 80-99 Automated erythrocyte mean corpuscular hemoglobin (mass per erythrocyte) 28 pg 25-34 Automated erythrocyte mean corpuscular hemoglobin concentration measurement ( mass/volume) 33 g/dL 32-36 Automated erythrocyte distribution width ratio 14.0 % 10.0-14.5 Automated blood platelet count (count/volume) 193 10*3/uL 130-400 Automated blood platelet mean volume measurement 10.6 [foz_us] 7.4-10.4 Automated blood neutrophils/100 leukocytes 62 % 42-75 Automated blood lymphocytes/100 leukocytes 26 % 12-44 Blood monocytes/100 leukocytes 7 % 0-12 Automated blood eosinophils/100 leukocytes 5 % 0-10 Automated blood basophils/100 leukocytes 1 % 0-10 Blood neutrophils automated count (number/volume) 3.0 10*3 1.8-7.8 Blood lymphocytes automated count (number/volume) 1.2 10*3 1.0-4.0 Blood monocytes automated count (number/volume) 0.3 10*3 0.0-1.0 Automated eosinophil count 0.2 10*3/uL 0.0-0.3 Automated blood basophil count (count/volume) 0.0 10*3/uL 0.0-0.1 Whole blood basic metabolic panel - 11/28/16 10:20 Serum or plasma sodium measurement (moles/volume) 140 mmol/L 135-145 Serum or plasma potassium measurement (moles/volume) 4.2 mmol/L 3.6-5.0 Serum or plasma chloride measurement (moles/volume) 108 mmol/L 98-107 Carbon dioxide 23 mmol/L 21-32 Serum or plasma anion gap determination (moles/volume) 9 mmol/L 5-14 Serum or plasma urea nitrogen measurement (mass/volume) 11 mg/dL 7-18 Serum or plasma creatinine measurement (mass/volume) 1.02 mg/dL 0.60-1.30 Serum or plasma urea nitrogen/creatinine mass ratio 11 NRG Serum or plasma creatinine measurement with calculation of estimated glomerular filtration rate > NRG Serum or plasma glucose measurement (mass/volume) 95 mg/dL 70-105 Serum or plasma calcium measurement (mass/volume) 9.2 mg/dL 8.5-10.1 Methicillin resistant Staphylococcus aureus (MRSA) screening culture - 10:20 Methicillin resistant Staphylococcus aureus (MRSA) screening culture NEG NRG [id number] - 03/10/17 12:11 [id number] FOOTNOTE NRG Stool leukocytes detection by light microscopy - 03/10/17 12:34 FECAL WBC RESULTS NEGATIVE FOR WBC'S NRG FECAL NOTE FECAL LEUKOCYTES MAY BE INTERMITTENTLY PRESENT OR NRG FECAL NOTE UNEVENLY DISTRIBUTED IN STOOL SPECIMENS, AND WBC NRG FECAL NOTE MORPHOLOGY DEGRADES DURING TRANSPORT NRG FECAL NOTE NOTE: NRG Stool bacteria identification by culture - 03/10/17 12:34 Stool bacteria identification by culture N2 NRG Encounters ACCT No. Visit Date/Time Discharge Status Pt. Type Provider Facility Loc./Unit Complaint [id number] 11/29/2016 09:01:00 11/29/2016 16:10:00 DIS Outpatient TAMIKO LOZOYA MD [facility] BILAT ING HERNIA; NOSE LESION; EPIGASTRIC PAIN [id number] 11/28/2016 09:50:00 11/28/2016 10:25:00 DIS Outpatient TAMIKO LOZOYA MD [facility] PREOP BILAT ING HERNIA;NOSE LESION; EPIGASTRIC PAIN [id number] 10/18/2016 11:16:00 10/18/2016 13:42:00 DIS Outpatient BENJIE, EDGAR E MARINE OIL TERMINAL SUPERINTENDENT [facility] REHAB R [facility] [id number] 10/11/2016 15:04:00 10/11/2016 00:01:00 DIS Outpatient BENJIE, EDGAR E MARINE OIL TERMINAL SUPERINTENDENT [facility] [id number] 09/13/2016 12:35:00 09/13/2016 23:59:59 CLS Outpatient KASH KEYES MD [facility] CARD CHEST PAIN,AF,HTN [id number] 12/19/2015 12:24:00 12/19/2015 18:30:00 DIS Outpatient ANNE MARIE TORRES MD [facility] LESIONS [id number] 12/14/2015 05:41:00 12/14/2015 11:05:00 DIS Outpatient ANNE MARIE TORRES MD [facility] PREOP [id number] 08/02/2014 11:15:00 08/02/2014 13:19:00 DIS Outpatient EDGAR WALDROP MARINE OIL TERMINAL SUPERINTENDENT [facility] REHAB [id number] 04/28/2014 15:16:00 04/28/2014 23:59:59 CLS Outpatient [id number] 04/26/2014 14:03:00 04/26/2014 23:59:59 CLS Outpatient [id number] 03/19/2014 12:06:00 03/19/2014 23:59:59 CLS Outpatient [id number] 02/02/2014 11:44:00 02/02/2014 14:07:00 DIS Emergency [id number] 03/08/2013 14:51:00 03/08/2013 18:16:00 DIS Emergency [id number] 12/24/2012 08:31:00 12/24/2012 23:59:59 [facility] Outpatient [id number] 03/11/2017 09:38:00 Document Registration [id number] 08/02/2014 11:27:15 ACT Document Registration
== END 2018-03-16 11:14 | disposition home or self-care (01) ==
LOC: EDUNIT# 09:03 → ER 09:04
DX: N20.1 Calculus of ureter (principal); G47.30 Sleep apnea, unspecified; K21.9 Gastro-esophageal reflux disease without esophagitis; Z85.828 Personal history of other malignant neoplasm of skin; Z87.820 Personal history of traumatic brain injury; Z87.891 Personal history of nicotine dependence; Z96.641 Presence of right artificial hip joint; Z87.01 Personal history of pneumonia (recurrent); Z90.89 Acquired absence of other organs; Z79.82 Long term (current) use of aspirin
CPT/HCPCS: 74018; 74176; 81000; 96374; 96375

== ENCOUNTER 2018-03-17 14:27 | Emergency (ER) | payer MEDICARE, OTHER ==
[~2018-03-17] VITALS: Ht 188 cm; Wt 92.1 kg
[~2018-03-17 14:27] MED LIST changes: +CEPH500T PO; +DOXY50CA2; +NPD5OP; +ONDA4TAB11 PO; +OXYC-202 PO; +OXYC-471 PO
[2018-03-17] MEDS ORDERED: fentaNYL INJECTION 100 MCG/2 ML AMP IVP ONE ×3 (14:45→17:15)
[2018-03-17] MEDS ORDERED: KETOROLAC 30 MG/ML VIAL IVP ONE (14:45)
[2018-03-17] MEDS ORDERED: ONDANSETRON 4 MG/2 ML (SDV) Z0FRAN IVP ONE (15:00)
--- NOTE | 2018-03-17 15:42 | ED Abdominal Pain ---
General Chief Complaint: Abdominal/GI Problems Stated Complaint: KIDNEY STONE PAIN Nursing Triage Note: Pt was seen in ED yesterday for kidney stone. Pain is worsened and more midline today. Sepsis Screen: No Definite Risk Source of Information: Patient Exam Limitations: No Limitations History of Present Illness Date Seen by Provider: Mar 17, 2018 Time Seen by Provider: 15:00 Initial Comments To ER per private vehicle with reports of abdominal pain diffusely. He was seen here yesterday for some right flank pain and diagnosed with a distal right ureteral stone several centimeters proximal to the UVJ that measured 4 x 3 mm. He was given Percocet and Keflex. Today the pain is more diffuse across the entire abdomen. Nausea and vomiting. No fevers or chills.He is already on uroxatrol. Timing/Duration: 1-2 Days Severity/Quality: Moderate Location: Generalized Abdomen Radiation: No Radiation Activities at Onset: None Associated Symptoms: Nausea/Vomiting Allergies and Home Medications Allergies Coded Allergies: ether (Verified Allergy, Unknown, 03/24/08) Home Medications Alfuzosin Hcl 10 Mg Tab.sr.24h, 10 MG PO HS, (Reported) Ascorbate Calcium 500 Mg Tablet, 500 MG PO HS, (Reported) Aspirin 325 Mg Tablet.dr, 325 MG PO DAILY, (Reported) Ca Carbonate/Vitamin D3/Vit K 1 Each Tab.chew, 1 EACH PO HS, (Reported) Cephalexin 500 Mg Tablet, 500 MG PO BID Prescribed by: OSMAR LOAIZA on 03/16/18 1023 Cholecalciferol 1,000 Unit Capsule, 1,000 UNIT PO HS, (Reported) Finasteride 5 Mg Tablet, 5 MG PO HS, (Reported) Folic Acid/Multivit-Min/Lutein 1 Each Tab.chew, 1 EACH PO HS, (Reported) Hydrocodone/Acetaminophen 1 Each Tablet, 1-2 EACH PO Q4H Prescribed by: TAMIKO LOZOYA on 11/29/16 1215 Lorazepam 1 Mg Tablet, 1 MG PO HS PRN for SLEEP, (Reported) Ondansetron 4 Mg Tab.rapdis, 4 MG PO Q6H PRN for NAUSEA/VOMITING Prescribed by: OSMAR LOAIZA on 03/16/18 1023 Oxycodone HCl/Acetaminophen 1 Each Tablet, 1 EACH PO Q6H PRN for BREAKTHROUGH PAIN Prescribed by: OSMAR LOAIZA on 03/16/18 1102 Pantoprazole Sodium 40 Mg Tablet.dr, 40 MG PO DAILY, (Reported) Simvastatin 40 Mg Tablet, 40 MG PO HS, (Reported) Patient Home Medication List Home Medication List Reviewed: Yes Review of Systems Constitutional: see HPI; No chills, No fever EENTM: No Symptoms Reported Respiratory: No Symptoms Reported Cardiovascular: No Symptoms Reported Gastrointestinal: See HPI, Abdominal Pain, Nausea Genitourinary: See HPI, Flank Pain, Pain Musculoskeletal: no symptoms reported Skin: no symptoms reported Psychiatric/Neurological: No Symptoms Reported Endocrine: No Symptoms Reported Past Cvhnqvm-Itygos-Fgwmzl Hx Patient Social History Alcohol Use: Occasionally Uses Number of Drinks Today: AA Alcohol Beverage of Choice: Beer Recreational Drug Use: No Type Used: Smokeless Tobacco Former Smoker, Quit: December 13, 2005 2nd Hand Smoke Exposure: No Recent Foreign Travel: No Contact w/Someone Who Travel: No Recent Infectious Disease Expo: No Recent Hopitalizations: No Physical Abuse: No Sexual Abuse: No Immunizations Up To Date Tetanus Booster (TDap): Unknown Date of Pneumonia Vaccine: May 12, 2012 Seasonal Allergies Seasonal Allergies: Yes (MILD) Past Medical History Surgeries: Yes (HEART ABLATION, SUBDURAL HEMATOMA, DOUBLE HERNIA, RIGHT HIP REPLACED) Appendectomy, Joint Replacement, Tonsillectomy Respiratory: Yes Pneumonia, Sleep Apnea Currently Using CPAP: No (HAS NOT USED CPAP SINCE MAY 2016) Cardiac: Yes (HX OF HEART ABLATION-2012) Neurological: Yes (SUBDURAL HEMATOMA 1981) Reproductive Disorders: No Sexually Transmitted Disease: No Genitourinary: No Gastrointestinal: Yes (EPIGASTRIC PAIN) Gastroesophageal Reflux Musculoskeletal: Yes (RIGHT HIP REPLACED-MAY 2016; RIGHT SHOULDER TORN ROTATOR CUFF) Endocrine: No Cataract Loss of Vision: Bilateral Hearing Impairment: Hard of Hearing, Bilateral Hearing Aide Cancer: Yes Skin Psychosocial: No Nursing Suicide Risk Score: 0 Integumentary: No Blood Disorders: No Physical Exam Vital Signs Vital Signs - First Documented 03/17/18 14:30 Temp 98.4 Pulse 82 Resp 18 B/P (MAP) 136/92 (107) O2 Delivery Room Air Capillary Refill : Less Than 3 Seconds Height/Weight/BMI Height: 6'2.00" Weight: 203lbs. 0.0oz. 92.874313zl; 25.9 BMI Method:Stated General Appearance: WD/WN, no apparent distress HEENT: PERRL/EOMI, normal ENT inspection Neck: non-tender, full range of motion Respiratory: normal breath sounds, no respiratory distress, no accessory muscle use Cardiovascular: regular rate, rhythm, no murmur Gastrointestinal: normal bowel sounds, soft, other (abdominal muscles are tense ) Extremities: normal range of motion, non-tender Neurologic/Psychiatric: alert, normal mood/affect, oriented x 3 Skin: normal color, warm/dry Progress/Results/Core Measures Results/Orders Lab Results Laboratory Tests Test 03/17/18 15:46 03/17/18 16:08 Range/Units White Blood Count 8.6 4.3-11.0 10^3/uL Red Blood Count 4.42 4.35-5.85 10^6/uL Hemoglobin 13.0 L 13.3-17.7 G/DL Hematocrit 39 L 40-54 % Mean Corpuscular Volume 87 80-99 FL Mean Corpuscular Hemoglobin 29 25-34 PG Mean Corpuscular Hemoglobin Concent 34 32-36 G/DL Red Cell Distribution Width 13.7 10.0-14.5 % Platelet Count 173 130-400 10^3/uL Mean Platelet Volume 10.1 7.4-10.4 FL Neutrophils (%) (Auto) 91 H 42-75 % Lymphocytes (%) (Auto) 4 L 12-44 % Monocytes (%) (Auto) 4 0-12 % Eosinophils (%) (Auto) 0 0-10 % Basophils (%) (Auto) 0 0-10 % Neutrophils # (Auto) 7.9 H 1.8-7.8 X 10^3 Lymphocytes # (Auto) 0.4 L 1.0-4.0 X 10^3 Monocytes # (Auto) 0.4 0.0-1.0 X 10^3 Eosinophils # (Auto) 0.0 0.0-0.3 10^3/uL Basophils # (Auto) 0.0 0.0-0.1 10^3/uL Neutrophils % (Manual) 91 % Lymphocytes % (Manual) 5 % Monocytes % (Manual) 4 % Eosinophils % (Manual) 0 % Basophils % (Manual) 0 % Band Neutrophils 0 % Blood Morphology Comment NORMAL Sodium Level 134 L 135-145 MMOL/L Potassium Level 4.3 3.6-5.0 MMOL/L Chloride Level 101 98-107 MMOL/L Carbon Dioxide Level 24 21-32 MMOL/L Anion Gap 9 5-14 MMOL/L Blood Urea Nitrogen 16 7-18 MG/DL Creatinine 1.77 H 0.60-1.30 MG/DL Estimat Glomerular Filtration Rate 38 BUN/Creatinine Ratio 9 Glucose Level 111 H 70-105 MG/DL Calcium Level 9.4 8.5-10.1 MG/DL My Orders Orders - MANDA YEPEZ APRN Ketorolac Injection (Toradol Injection) (03/17/18 14:45) Cbc With Automated Diff (03/17/18 14:45) Iv Heplock-Insert (Order) (03/17/18 14:45) Fentanyl Injection (Sublimaze Injection (03/17/18 14:45) Ondansetron Injection (Zofran Injectio (03/17/18 15:00) Abdomen, Flat & Upright/Decub (03/17/18 15:00) Basic Metabolic Panel (03/17/18 15:59) Manual Differential (03/17/18 15:46) Oxycodone/Apap 5/325mg Tablet (Percocet (03/17/18 16:30) Fentanyl Injection (Sublimaze Injection (03/17/18 17:00) Ns Iv 500 Ml (Sodium Chloride 0.9%) (03/17/18 17:00) Promethazine Injection (Phenergan Injec (03/17/18 17:00) Medications Given in ED Current Medications Medications Dose Ordered Sig/Jeannine Route Start Time Stop Time Status Last Admin Dose Admin Fentanyl Citrate 50 mcg ONCE ONCE IVP 03/17/18 14:45 03/17/18 14:47 DC 03/17/18 15:00 50 MCG Ketorolac Tromethamine 15 mg ONCE ONCE IVP 03/17/18 14:45 03/17/18 14:47 DC 03/17/18 15:00 15 MG Ondansetron HCl 8 mg ONCE ONCE IVP 03/17/18 15:00 03/17/18 15:01 DC 03/17/18 15:04 8 MG Oxycodone/ Acetaminophen 1 tab ONCE ONCE PO 03/17/18 16:30 03/17/18 16:31 DC 03/17/18 16:48 1 TAB Vital Signs/I&O 03/17/18 14:30 Temp 98.4 Pulse 82 Resp 18 B/P (MAP) 136/92 (107) O2 Delivery Room Air Blood Pressure Mean: 107 Departure Impression Primary Impression: Ureteral calculus, right Disposition: 01 HOME, SELF-CARE Condition: Improved Departure-Patient Inst. Decision time for Depature: 17:01 Referrals: BAYLEE BRANTLEY MD (PCP/Family) Primary Care Physician Patient Instructions: Kidney Stones in Adults Add. Discharge Instructions: 1. Take your next full dose percocet at 9pm. If you need a half of a perocet between now and then you may take that at any time. 2. Follow up with your doctor next week. Call Dr Chand tomorrow morning for an appointment. All discharge instructions reviewed with patient and/or family. Voiced understanding. Copy Copies To 1: GABO CHAND MD Copies To 2: BAYLEE BRANTLEY MD, PETER J APRN Mar 17, 2018 15:42
--- NOTE | 2018-03-17 15:43 | Diagnostic Imaging Report ---
INDICATION: Pain. Fever.. TECHNIQUE: Supine and upright view of the abdomen at 3:44 p.m. CORRELATION STUDY: 03/16/2018 FINDINGS: Two adjacent densities in the right hemipelvis are present at approximately 3 mm in size. One of these likely corresponds to the known recently identified stone in the distal right ureter. This appears likely relatively stable in position. A few gas-filled loops of small bowel are noted with occasional air-fluid levels. Likely ileus pattern. Mild/moderate severity fecal retention. Lung bases appear generally clear. IMPRESSION: 1. Small calcification in the right hemipelvis, likely corresponding to the recently identified distal right ureteral stone appearing similar as to its location. Dictated by: Dictated on workstation # [id number]
[2018-03-17 15:59] LABS: BASOPHILS % (AUTO) 0 % (0-10); EOSINOPHILS % (AUTO) 0 % (0-10); HEMATOCRIT 39 % (40-54); LYMPHOCYTES # (AUTO) 0.4 X 10^3 (1.0-4.0); LYMPHOCYTES % (AUTO) 4 % (12-44); MEAN CORPUSCULAR HEMOGLOBIN 29 PG (25-34); MEAN CORPUSCULAR HGB CONC 34 G/DL (32-36); MEAN CORPUSCULAR VOLUME 87 FL (80-99); MEAN PLATELET VOLUME 10.1 FL (7.4-10.4); MONOCYTES # (AUTO) 0.4 X 10^3 (0.0-1.0); MONOCYTES % (AUTO) 4 % (0-12); NEUTROPHILS # (AUTO) 7.9 X 10^3 (1.8-7.8); NEUTROPHILS % (AUTO) 91 % (42-75); PLATELET COUNT 173 10^3/uL (130-400); RED BLOOD COUNT 4.42 10^6/uL (4.35-5.85); RED CELL DISTRIBUTION WIDTH 13.7 % (10.0-14.5); WHITE BLOOD COUNT 8.6 10^3/uL (4.3-11.0)
[2018-03-17 16:24] LABS: BAND NEUTROPHILS 0 %; BASOPHILS % (MANUAL) 0 %; EOSINOPHILS % (MANUAL) 0 %; LYMPHOCYTES % (MANUAL) 5 %; MONOCYTES % (MANUAL) 4 %; NEUTROPHILS % (MANUAL) 91 %; RBC MORPH NORMAL
[2018-03-17 16:30] LABS: CALCIUM 9.4 MG/DL (8.5-10.1); CREATININE SERUM 1.77 MG/DL (0.60-1.30); POTASSIUM 4.3 MMOL/L (3.6-5.0)
[2018-03-17] MEDS ORDERED: oxyCODONE/APAP 5/325MG (PERCOCET 5) TABLET PO ONE (16:30)
[2018-03-17] MEDS ORDERED: PROMETHAZINE INJ 25 MG/ML (PHENERGAN) AMP IVP ONE (17:00)
[2018-03-17] MEDS ORDERED: NS IV 500 ML 500 ML IV SCH (17:00)
[2018-03-17 18:00] VITALS: BP 137/82
== END 2018-03-17 18:00 | disposition home or self-care (01) ==
LOC: EDUNIT# 14:27 → ER 14:28
DX: N20.1 Calculus of ureter (principal); G47.30 Sleep apnea, unspecified; K21.9 Gastro-esophageal reflux disease without esophagitis; Z85.828 Personal history of other malignant neoplasm of skin; Z88.8 Allergy status to other drugs, medicaments and biological substances; Z79.82 Long term (current) use of aspirin; Z87.891 Personal history of nicotine dependence; Z96.641 Presence of right artificial hip joint; Z90.89 Acquired absence of other organs; Z87.01 Personal history of pneumonia (recurrent)
CPT/HCPCS: 36415; 74019; 80048; 85007; 85027; 96361; 96374; 96375; 96376

== ENCOUNTER 2018-05-08 08:01 | Outpatient (RCR) | payer MEDICARE, OTHER ==
[~2018-05-08 08:01] MED LIST changes: -OXYC-202 PO; +OXYC1TAB12 PO
== END 2018-05-11 | disposition home or self-care (01) ==
PROVIDERS: ATTEND Orthopaedic Surgery
DX: M70.61 Trochanteric bursitis, right hip (principal); Z96.642 Presence of left artificial hip joint

== ENCOUNTER 2018-07-30 11:18 | Outpatient (RCR) | payer MEDICARE, OTHER | END 2018-08-08 16:32 | disposition home or self-care (01) | PROVIDERS: ATTEND Orthopaedic Surgery | DX: M70.61 Trochanteric bursitis, right hip (principal); Z96.642 Presence of left artificial hip joint ==

== ENCOUNTER → 2019-09-09 | Outpatient (CLI) | payer MEDICARE, OTHER, BC ==
[~2019-09-09] VITALS: Ht 185 cm; Wt 96.0 kg
[~2019-09-09] MED LIST changes: +CATHETER FLUSH 10 ML SYR IV PRN; +REGADENOSON 0.4 MG/5 ML SYR (LEXISCAN) IV ONE; -TRAM50TA2 PO; +TRM50T PO
== END ==
LOC: CARD 12:01
PROVIDERS: ATTEND Internal Medicine Cardiovascular Disease
DX: I10 Essential (primary) hypertension (principal); I48.0 Paroxysmal atrial fibrillation; E78.2 Mixed hyperlipidemia; I65.29 Occlusion and stenosis of unspecified carotid artery
CPT/HCPCS: 78452; 93017

== ENCOUNTER → 2019-09-10 | Outpatient (CLI) | payer MEDICARE, OTHER ==
[~2019-09-10] MED LIST changes: -CATHETER FLUSH 10 ML SYR IV PRN; -REGADENOSON 0.4 MG/5 ML SYR (LEXISCAN) IV ONE
== END ==
LOC: CARD 08:27
PROVIDERS: ATTEND Internal Medicine Cardiovascular Disease
DX: I65.23 Occlusion and stenosis of bilateral carotid arteries (principal); E78.2 Mixed hyperlipidemia; I10 Essential (primary) hypertension; I48.0 Paroxysmal atrial fibrillation
CPT/HCPCS: 93306

== ENCOUNTER 2020-04-06 11:26 | Outpatient (RCR) | payer MEDICARE, OTHER ==
[~2020-04-06 11:26] MED LIST changes: -PANT40TA3 PO; +PANT40TA52 PO
== END 2020-05-31 | disposition home or self-care (01) ==
PROVIDERS: ATTEND Internal Medicine
DX: M25.551 Pain in right hip (principal); M54.5 Low back pain; R20.0 Anesthesia of skin; Z96.641 Presence of right artificial hip joint

== ENCOUNTER 2020-12-22 05:31 | Outpatient (CLI) | payer MEDICARE, OTHER ==
[~2020-12-22] VITALS: Ht 188 cm; Wt 94.3 kg
[~2020-12-22 05:31] MED LIST changes: -OXYC-471 PO; +OXYC1TAB11 PO
[2020-12-22] MEDS ORDERED: ZOLP10TA PO (14:01)
[2020-12-22] MEDS ORDERED: CELE-63 PO (14:01)
== END 2020-12-22 15:19 | disposition home or self-care (01) ==
LOC: PREOP 05:31
PROVIDERS: ATTEND Surgery
DX: Z01.818 Encounter for other preprocedural examination (principal); K40.90 Unilateral inguinal hernia, without obstruction or gangrene, not specified as recurrent

== ENCOUNTER 2020-12-29 09:32 | Day surgery (SDC) | payer MEDICARE, OTHER ==
[~2020-12-29] VITALS: Ht 188 cm; Wt 94.3 kg
[2020-12-29] VITALS (12 sets, daily range): BP systolic 92–142; BP diastolic 58–87
[~2020-12-29 09:32] MED LIST changes: +CELE-63 PO; +ZOLP10TA PO
--- NOTE | 2020-12-29 09:48 | Progress Note-Pre Operative ---
Pre-Operative Progress Note H&P Reviewed The H&P was reviewed, patient examined and no changes noted. Date Seen by Provider: December 29, 2020 Time Seen by Provider: 09:45 Date H&P Reviewed: December 29, 2020 Time H&P Reviewed: 09:40 Pre-Operative Diagnosis: Bilateral inguinal hernias ROSSANA HALEY APRN December 29, 2020 09:48
[2020-12-29] MEDS ORDERED: HYDR-3817 PO (09:50)
--- NOTE | 2020-12-29 09:51 | Discharge Inst-Surgical ---
D/C Lap Instructions-KIDO Reconcile Patient Problems Problems Reviewed?: Yes New, Converted, or Re-Newed RX: RX on Chart Follow Up Appt in 2 weeks Activity as tolerated No driving for 24 hours No driving while on pain medications Incentive Spirometry use every 2 hours while awake Regular Diet Symptoms to Report: Fever over 101 degree F, Nausea/Vomiting Infection Signs and Symptoms to report: Increased redness, Foul odor of wound, Increased drainage Bathing instructions: May shower Operative Area Clean/Dry; Keep incision clean/dry If any problems/questions: Contact your physician or go to Emergency Room ROSSANA HALEY APRN December 29, 2020 09:51
[2020-12-29] MEDS ORDERED: HYDROcodone/APAP 5 MG/325 MG (LORTAB) TAB PO ONE (10:00)
[2020-12-29] MEDS ORDERED: ACETAMINOPHEN 325 MG TABLET PO PRN (10:00)
[2020-12-29] MEDS ORDERED: morphine INJ 10 MG/ML 1ML (SYR OR VIAL) IVP PRN (10:00)
[2020-12-29] MEDS ORDERED: ONDANSETRON 4 MG/2 ML (SDV) Z0FRAN IVP PRN ×2 (10:00→13:15)
[2020-12-29] MEDS ORDERED: LIDOCAINE/EPI 1%-1:200,000 (XYLOCAINE) 30 ML VIAL ONE (10:12)
[2020-12-29] MEDS ORDERED: ceFAZolin 2 GM IV Premixed 50 ML IV ONE (10:15)
[2020-12-29] MEDS ORDERED: fentaNYL INJ 100 MCG/2 ML AMP ONE ×2 (10:17→12:32)
[2020-12-29] MEDS ORDERED: SEVOFLURANE (ULTANE) 15 ML INHAL SOLN ONE ×2 (10:17→12:49)
[2020-12-29] MEDS ORDERED: ONDANSETRON 4 MG/2 ML (SDV) Z0FRAN ONE (10:17)
[2020-12-29] MEDS ORDERED: NEOSTIGMINE 3 MG/3 ML VIAL ONE (10:17)
[2020-12-29] MEDS ORDERED: ROCURONIUM 10 MG/ML 5 ML SYRINGE IV ONE (10:17)
[2020-12-29] MEDS ORDERED: GLYCOPYRROLATE 0.2 MG/ML (ROBINUL) 2 ML VIAL ONE (10:17)
[2020-12-29] MEDS ORDERED: proPOfol 200 MG/20 ML (DIPRIVAN) VIAL IV ONE (10:18)
[2020-12-29] MEDS ORDERED: LIDOCAINE PF 2% 5 ML (XYLOCAINE) VIAL ONE (10:18)
[2020-12-29] MEDS ORDERED: MIDAZOLAM 2 MG/2 ML (VERSED) VIAL ONE (10:18)
[2020-12-29] MEDS: LACTATED RINGERS 1,000 ML IV PRN ×2 (10:51→12:15)
[2020-12-29] MEDS ORDERED: HYDROmorphone 2 MG/ML VIAL (DILAUDID) ONE (13:04)
[2020-12-29] MEDS: HYDROmorphone 2 MG/ML VIAL (DILAUDID) IV ONE ×2 (13:15→13:19)
[2020-12-29] MEDS ORDERED: morphine INJ 10 MG/ML 1ML (SYR OR VIAL) IVP ONE (13:15)
[2020-12-29] MEDS ORDERED: HYDROcodone/APAP 5 MG/325 MG (LORTAB) TAB ONE (13:53)
--- NOTE | 2020-12-29 14:40 | Progress Note-Post Operative ---
Post-Operative Progess Note Surgeon (s)/Validation Engineer (s) Surgeon TAMIKO LOZOYA MD Validation Engineer: aileen perez RUG CLEANER HELPER Pre-Operative Diagnosis Bilateral recurrent inguinal hernias Post-Operative Diagnosis recurrent right direct ing and left indirect ing hernia Procedure & Operative Findings Date of Procedure 12/29/20 Procedure Performed/Findings laparoscopic bilateral ing hernia repair with mesh. Anesthesia Type get Estimated Blood Loss Estimated blood loss (mL): minimal Specimens/Packing Specimens Removed none TAMIKO LOZOYA MD December 29, 2020 14:40
--- NOTE | 2020-12-29 15:34 | OPERATIVE REPORT ---
DATE OF SERVICE: 12/29/2020 ATTENDING PRIMARY CARE PHYSICIAN: Dr. Beto Alfredo. PREOPERATIVE DIAGNOSIS: Recurrent reducible bilateral inguinal hernias. POSTOPERATIVE DIAGNOSIS: Recurrent right direct inguinal hernia. Recurrent left indirect inguinal hernia. PROCEDURE: Laparoscopic bilateral recurrent inguinal hernia repair with mesh. SURGEON: Tamiko Lozoya MD COCONUT BOILER: Eugene Conley APRN. ANESTHESIA: General endotracheal. ESTIMATED BLOOD LOSS: Minimal. FINDINGS: Recurrent right direct inguinal hernia. Recurrent left indirect inguinal hernia. DISPOSITION: The patient tolerated the procedure well. INDICATIONS: The patient is a 75-year-old male known to us. We had seen him in 2009 for symptomatic umbilical hernia, which was repaired. He was then seen in 2017 for bilateral inguinal hernias, which was recurrent on the right side. He had had a previous open right inguinal hernia repair in the past. He states that he has noticed a bulge in the right inguinal region approximately a year ago, which has grown larger in size and become more symptomatic. Upon examination, he was found to have a small left recurrent inguinal hernia as well. He states that he is otherwise eating well and having normal bowel movements. DESCRIPTION OF PROCEDURE: The patient was brought to the operating room, laid supine on the table. After adequate IV pain and sedative medications and general endotracheal intubation, the abdomen was prepped and draped in standard surgical fashion. A 0.5% Marcaine with epinephrine was then used to anesthetize the overlying skin in the infraumbilical rim and a transverse skin incision made using a 15 blade. A sharp towel clamp was then used to retract the abdominal wall anteriorly and a Veress needle inserted with a low opening pressure of 0 mmHg. The abdomen was then insufflated to 15 mmHg pressure. The Veress needle removed and a 5 mm XL trocar placed followed by a 5 mm 45-degree angle laparoscope visualizing the peritoneal cavity. A 4-quadrant abdominal exploration was performed. Recurrent was identified nothing within the hernia sac. There was also a recurrent left indirect inguinal hernia identified again with nothing within the hernia sac. We then proceeded to place bilateral 5 mm ports after the skin and peritoneal lining were anesthetized using 0.5% Marcaine with epinephrine and a transverse skin incision made using 15-blade. The patient was then placed in Trendelenburg position. We first proceeded with repair of the right recurrent inguinal hernia. The peritoneal lining was then opened laterally towards the conjoined tendon lateral to the previous mesh using the Sonicision. We then proceeded medially until Piter's ligament was reached. We then proceeded with inferior dissection of the direct inguinal hernia component using blunt dissection as well as the Sonicision with visualization of good hemostasis. Good hemostasis was observed. A medium size right 3DMax polypropylene mesh was then placed over the defect and tacked to Piter's ligament medially and to the inguinal ligament laterally with absorbable tacks. The previous mesh and peritoneal lining were then placed over the mesh and a few tacks placed to hold this in place with visualization of good hemostasis. We then proceeded with dissection of the left recurrent indirect inguinal hernia using the Sonicision starting laterally towards the conjoined tendon in inguinal ligament as well as lateral to the previous mesh. We then proceeded with medial dissection until Piter's ligament was reached. The indirect inguinal hernia sac was then dissected out using blunt dissection as well as a Sonicision identifying the cord and its surrounding contents and sparing them. A left 3DMax polypropylene mesh was then placed into the peritoneal cavity and tacked to Piter's ligament medially and to the inguinal ligament laterally using absorbable tacks. The previous mesh and the peritoneal lining were then placed over the mesh and a few tacks placed to hold this in place with visualization of good hemostasis. The 10 mm port site fascia and peritoneum were then closed under direct visualization using a Marquez-Sulma device and 0 Vicryl suture. The abdomen was desufflated and the remaining ports removed. All skin incisions were closed using 4-0 Monocryl running subcuticular sutures. Wounds were then cleaned and covered with Dermabond. The patient tolerated the procedure well. We will start IV normal pain medication as well as a clear liquid diet. Once he is tolerating clears, has good pain control with oral pain medications, ambulating well, we will discharge him home. He is a high risk for hernia reoccurrence. For him, we will recommend no heavy lifting and exertion as well as hernia belt, which he has purchased for home to be worn all the time for at least 6 weeks. He is also instructed to do no heavy lifting or exertion for the same timeframe. Job ID: [id number] DocumentID: [id number] Dictated Date: 12/29/2020 12:44:35 Family Literacy Coordinator Date: 12/29/2020 15:33:24 Dictated By: TAMIKO LOZOYA MD
== END 2020-12-29 15:45 ==
LOC: SDC 09:32
PROVIDERS: ATTEND Surgery
DX: K40.01 Bilateral inguinal hernia, with obstruction, without gangrene, recurrent (principal); I48.91 Unspecified atrial fibrillation; G47.33 Obstructive sleep apnea (adult) (pediatric); K21.9 Gastro-esophageal reflux disease without esophagitis; E78.00 Pure hypercholesterolemia, unspecified; N40.0 Benign prostatic hyperplasia without lower urinary tract symptoms; M19.90 Unspecified osteoarthritis, unspecified site; Z90.89 Acquired absence of other organs; Z96.641 Presence of right artificial hip joint; Z20.822 Contact with and (suspected) exposure to COVID-19; Z98.890 Other specified postprocedural states; Z88.5 Allergy status to narcotic agent; Z79.82 Long term (current) use of aspirin; Z79.1 Long term (current) use of non-steroidal anti-inflammatories (NSAID); Z79.899 Other long term (current) drug therapy; Z87.891 Personal history of nicotine dependence; Z80.1 Family history of malignant neoplasm of trachea, bronchus and lung
CPT/HCPCS: 49651; 87081; 94664; C1781 ×2

== ENCOUNTER → 2021-09-14 | Outpatient (CLI) | payer MEDICARE, OTHER ==
[~2021-09-14] MED LIST changes: +HYDR-3817 PO
== END ==
LOC: LABNPT 08:18
PROVIDERS: ATTEND Internal Medicine
DX: U07.1 COVID-19 (principal)
CPT/HCPCS: 87635

== ENCOUNTER → 2023-02-07 | Outpatient (CLI) | payer MEDICARE, OTHER ==
--- NOTE | 2023-02-07 15:44 | Diagnostic Imaging Report ---
INDICATION: Fall and complaining of rib pain. TIME OF EXAM: 02:14 p.m. FINDINGS: The heart is mildly enlarged. Lungs are clear. No infiltrate is detected. No effusion or pneumothorax is identified. No acute bony abnormality is detected. IMPRESSION: No acute abnormality identified. Dictated by: Dictated on workstation # [id number]
--- NOTE | 2023-02-07 15:58 | Diagnostic Imaging Report ---
INDICATION: Fall, complaining of left rib pain. TIME OF EXAM: 2:16 PM. EXAMINATION: Three views of the left ribs were obtained. FINDINGS: There appear to be fractures involving the anterior 7th, 8th and 9th ribs. These are nondisplaced. There is some atelectasis left base. No pneumothorax is seen. IMPRESSION: Nondisplaced left 7th, 8th and 9th rib fractures. Dictated by: Dictated on workstation # [id number]
== END ==
LOC: RAD 14:06
PROVIDERS: ATTEND Internal Medicine
DX: S22.42XA Multiple fractures of ribs, left side, initial encounter for closed fracture (principal); X58.XXXA Exposure to other specified factors, initial encounter
CPT/HCPCS: 71046; 71100